=== PATIENT | female | born 1940 | race Caucasian/White ===

== ENCOUNTER → 2017-10-09 | Outpatient (CLI) | payer MEDICARE ==
[~2017-10-09] MED LIST: ARMOUR THYROID60 MG PO; CLOTRIMAZOLE-BE15 GM TOP; GABAPENTIN100 MG PO; LEVAQUIN D IV; Z.0.ALPRAZOLAM0.5 MG PO; Z.0.BACLOFEN20 MG PO; Z.0.DICYCLOMINE HCL2 PO; Z.0.DIOVAN40 MG PO; Z.0.GABAPENTIN300 MG PO; Z.1.HYDROCHLOROTH12. PO; [UNRECOGNIZED DRUG - OTHER] PO
[2017-10-09 11:24] LABS: CREATININE, SERUM 1.27 mg/dL (0.57-1.11)
--- NOTE | 2017-10-09 12:22 | Diagnostic Imaging Report ---
PROCEDURE:CHEST XRAY LINE PLACEMENT TECHNIQUE:Portable AP chest INDICATION:PICC placement COMPARISON:[facility], DX, CHEST XRAY LINE PLACEMENT, 07/24/2015, 20:17. FINDINGS: See conclusion. CONCLUSION: 1. Right PICC terminating in the low SVC. 2. Clear lungs. No pleural effusions. 3. Normal cardiomediastinal silhouette. 4. Intact skeleton. Dictated by: Se Sandoval M.D. on 10/09/2017 at 12:22 Electronically approved by: Se Sandoval M.D. on 10/09/2017 at 12:22
== END ==
LOC: DX 10:29
PROVIDERS: ATTEND Internal Medicine
DX: N39.0 Urinary tract infection, site not specified (principal); Z16.24 Resistance to multiple antibiotics
CPT/HCPCS: 36415; 36569; 71045; 82565; 84520

== ENCOUNTER → 2018-09-30 | Outpatient (CLI) | payer MEDICARE ==
[2018-09-30 11:06] LABS: INR 0.87; PARTIAL THROMBOPLASTIN TIME 30.7 seconds (23.8-35.5); PROTHROMBIN TIME 12.6 seconds (11.9-14.5)
[2018-09-30 11:12] LABS: CREATININE, SERUM 1.31 mg/dL (0.57-1.11)
--- NOTE | 2018-09-30 13:33 | Diagnostic Imaging Report ---
EXAM: CHEST XRAY LINE PLACEMENT dated 09/30/2018 at 12:41 PM INDICATION: PICC placement COMPARISON: None. FINDINGS: Single portable AP view of the chest. Visualized bones, soft tissues and cardiomediastinal silhouette appear unremarkable. IMPRESSION: 1. Lines/tubes: Left-sided PICC terminates overlying the SVC. 2. No acute cardiopulmonary abnormality. Signed by: Dr. Jl Raphael DO on 09/30/2018 1:30 PM
== END ==
LOC: DX 10:31
PROVIDERS: ATTEND Internal Medicine
DX: N39.0 Urinary tract infection, site not specified (principal); A41.81 Sepsis due to Enterococcus
CPT/HCPCS: 36415; 36569; 71045; 82565; 84520; 85049; 85610; 85730

== ENCOUNTER 2018-10-07 10:32 | Emergency (ER) | payer MEDICARE ==
[~2018-10-07] VITALS: Ht 162.6 cm; Wt 102.5 kg
--- OUTSIDE RECORDS SUMMARY | 2018-10-07 10:36 | XMS REPORT ---
Author Author [facility] Address Unknown Phone Unavailable Care Team Providers Care Menagerie Caretaker Name Role Phone CLARISSA BARRON Unavailable Unavailable Problems This patient has no known problems. Allergies, Adverse Reactions, Alerts This patient has no known allergies or adverse reactions. Medications This patient has no known medications. Results Test Description Test Time Test Comments Text Results Atomic Results Result Comments CHEST XRAY LINE PLACEMENT 2018-09-30 13:29:00 [place] [address] Patient Name: XIN MURRAY MR #: [id number] : 1940 Age/Sex: 78/F Req #: [id number] [facility] Physician: Ordered by: CLARISSA BARRON MD Report #: [id number] Location: DX Room/Bed: Procedure: [id number] DX/CHEST XRAY LINE PLACEMENT Exam Date: 09/30/18 Exam Time: 1200 REPORT STATUS: Signed EXAM: CHEST XRAY LINE PLACEMENT dated 09/30/2018 at 12:41 PM INDICATION: PICC placement COMPARISON: None. FINDINGS: Single portable AP view of the chest. Visualized bones, soft tissues and cardiomediastinal silhouette appear unremarkable. IMPRESSION: 1. Lines/tubes: Left-sided PICC terminates overlying the SVC. 2. No acute cardiopulmonary abnormality. Signed by: Dr. Nicolette Raphael DO on 09/30/2018 1:30 PM Dictated By: NICOLETTE RAPHAEL DO 29 Transcribed By: VANESSA on 09/30/181329 COPY TO: CLARISSA BARRON MD CHEST XRAY LINE PLACEMENT [facility] [address] [address] Patient Name: XIN MURRAY MR #: [id number] : 1940 Age/Sex: 77/F Req #: [id number] Adm Physician: Ordered by: CLARISSA BARRON MD Report #: [id number] Location: DX Room/Bed: Procedure: [id number] DX/CHEST XRAY LINE PLACEMENT Exam Date: 10/09/17 Exam Time: 1115 REPORT STATUS: Signed PROCEDURE: CHEST XRAY LINE PLACEMENT TECHNIQUE: Portable AP chest INDICATION: PICC placement COMPARISON: [facility], DX, CHEST XRAY LINE PLACEMENT, 07/24/2015, 20:17. FINDINGS: See conclusion. CONCLUSION: 1. Right PICC terminating in the low SVC. 2. Clear lungs. No pleural effusions. 3. Normal cardiomediastinal silhouette. 4. Intact skeleton. Dictated by: Jasmeet Sandoval M.D. on 10/09/2017 at 12:22 Electronically approved by: Jasmeet Sandoval M.D. on 10/09/2017 at 12:22 Dictated By: JASMEET SANDOVAL MD 1222 Transcribed By: ISRAEL on 10/09/17 1222 COPY TO: CLARISSA BARRON MD
--- NOTE | 2018-10-07 16:37 | NUR ---
Pt placed in a hallway stretcher for comfort. Pt updated on PICC Line Team ETA.
[2018-10-07] MEDS ORDERED: ALTEPLASE RECOMBINANT 2 MG/2 ML VIAL IV PRN (18:45)
--- NOTE | 2018-10-07 19:14 | NUR ---
PICC LINE TEAM ABLE TO CLEAR LINE WITH CATHFLO. PT VISIT CANCELLED.
== END 2018-10-07 19:17 | disposition home or self-care (01) ==
LOC: ER 10:32
DX: Z48.03 Encounter for change or removal of drains (principal)
CPT/HCPCS: 36593; 74470; J2997

== ENCOUNTER 2018-10-31 13:20 | Emergency (ER) | payer MEDICARE, OTHER ==
[~2018-10-31] VITALS: Ht 162.6 cm; Wt 131.5 kg
[2018-10-31 14:09] VITALS: BP 158/78
--- NOTE | 2018-10-31 15:23 | Diagnostic Imaging Report ---
Hip complete Indication: Unable to stand Technique: AP and frogleg views of right hip obtained. Comparison: None Findings: The bones are diffusely demineralized. Right hip remains properly located. The cortex appears intact throughout. Trochanters appear intact. No significant joint space narrowing or osteophytic lipping. Adjacent pubic rami appear intact. Lower lumbar spine demonstrates diffuse degenerative changes. There are chain sutures in the left abdomen. No radiopaque foreign bodies in the soft tissues. IMPRESSION: Right hip properly located. No convincing evidence for fracture. Signed by: Dr. Jaclyn Escamilla MD on 10/31/2018 3:20 PM
--- NOTE | 2018-10-31 15:25 | Diagnostic Imaging Report ---
Lumbar spine two views CPT code: 75845 Indication: Unable to stand Technique: A.P. and lateral views of the lumbar spine obtained without comparison. Findings: The bones are diffusely demineralized. There are five non rib bearing vertebral bodies. There is mild levoscoliosis with the apex at L3. No rotational component. No listhesis on lateral image. The transverse processes are intact. The vertebral body heights are well maintained. There is disc space narrowing from L3-4 to L5-S1 with endplate ossific lipping. No abnormalities of the sacroiliac joints. The sacrum is normal. There is mild facet arthropathy of the lower levels. Diffuse calcifications of the abdominal aorta. The bowel gas pattern is unremarkable with chain sutures in the left hemiabdomen. IMPRESSION: Degenerative changes of the spine and mild levoscoliosis, possibly positional. No acute osseous finding. Signed by: Dr. Jaclyn Escamilla MD on 10/31/2018 3:22 PM
[2018-10-31] MEDS ORDERED: KETOROLAC TROMETHAMINE 30 MG/ML VIAL IM ONE (15:45)
[2018-10-31] MEDS ORDERED: PREDNISONE20 MG PO (16:06)
[2018-10-31] MEDS ORDERED: ULTRAM50 MG PO (16:08)
== END 2018-10-31 16:26 | disposition home or self-care (01) ==
LOC: FSED 13:20
DX: M54.41 Lumbago with sciatica, right side (principal); M54.16 Radiculopathy, lumbar region; I10 Essential (primary) hypertension; E01.8 Other iodine-deficiency related thyroid disorders and allied conditions; G37.3 Acute transverse myelitis in demyelinating disease of central nervous system; G82.20 Paraplegia, unspecified; Z93.3 Colostomy status
CPT/HCPCS: 72100; 73502; 99283; J1885

== ENCOUNTER → 2019-09-15 | Outpatient (CLI) | payer MEDICARE ==
[~2019-09-15] MED LIST changes: +PREDNISONE20 MG PO; +ULTRAM50 MG PO
[2019-09-15 12:53] LABS: HEMOGLOBIN 14.6 g/dL (12.0-16.0)
[2019-09-15 13:07] LABS: INR 0.95; PROTHROMBIN TIME 12.9 seconds (11.9-14.5)
[2019-09-15 13:08] LABS: PARTIAL THROMBOPLASTIN TIME 33.3 seconds (23.8-35.5)
[2019-09-15 13:13] LABS: CREATININE, SERUM 1.47 mg/dL (0.57-1.11)
== END ==
LOC: DX 12:19
PROVIDERS: ATTEND Internal Medicine
DX: N39.0 Urinary tract infection, site not specified (principal)
CPT/HCPCS: 36415; 36568; 82565; 84520; 85014; 85049; 85610; 85730

== ENCOUNTER → 2019-09-17 | Outpatient (CLI) | payer MEDICARE ==
[~2019-09-17] MED LIST changes: +IOPAMIDOL 300MG/ML 100 ML INFUS..BTL IV ONE; +LIDOCAINE HCL 1% LOCAL INJ 20 ML VIAL ONE; +SODIUM CHLORIDE 0.9% 250ML 250 ML ONE
--- NOTE | 2019-09-17 16:34 | Diagnostic Imaging Report ---
Tunneled central line placement, 09/17/2019. History: UTI, need for home IV antibiotics. Comparison: None available. [employer] Representative: Dr. Hawley. Medication: 5 cc of 1% lidocaine without epinephrine. Conscious sedation: None. EBL: < 2 cc. Fluoroscopy time: 0.5 minutes. Fluoroscopy dose: 1.6 mGy (JOHN) Specimen: None. Discussion: The existing left arm midline was evaluated, demonstrating absence of aspiration and inability to flush without saline leaking around the entry site. Contrast was injected demonstrating complete occlusion of the left arm vein, with no contrast seen entering the axillary region. Decision was made to remove the nonfunctioning midline. An order and consent were obtained for placement of a tunneled central line. After informed consent and timeout procedure, the access site was prepped and draped with the standard maximal sterile barrier technique. Ultrasound images demonstrated vessel patency. Images were documented within PACS. The skin was anesthetized with lidocaine. The right internal jugular vein was accessed using a micropuncture set with ultrasound guidance. A 0.035-in. wire was advanced through the micropuncture sheath into the vein. The wire was advanced through the atrium into the IVC using fluoroscopic guidance. The right chest was further anesthetized with lidocaine to form the subcutaneous tunnel. The catheter was advanced through the tunnel. The tract was dilated. A peel-away sheath was placed. A 6 Croatian dual-lumen Powerline catheter was trimmed to the appropriate length and placed into the vessel via the peel-away sheath, which was then removed. Both ports demonstrated normal aspiration and flushing. The catheter was secured with suture. Dressing was applied. The patient tolerated the procedure well without evidence of complication. Postprocedure image demonstrates the line to terminate near the cavoatrial junction. IMPRESSION: Successful tunneled central line placement with ultrasound and fluoroscopic guidance guidance. Signed by: Jori Hawley on 09/17/2019 4:31 PM
== END ==
LOC: DX 12:35
PROVIDERS: ATTEND Internal Medicine
DX: N39.0 Urinary tract infection, site not specified (principal)
CPT/HCPCS: 36558; 36598; 76937; 77001; J2001; J7050; Q9967

== ENCOUNTER → 2019-10-21 | Outpatient (CLI) | payer MEDICARE ==
[~2019-10-21] MED LIST changes: -IOPAMIDOL 300MG/ML 100 ML INFUS..BTL IV ONE; -LIDOCAINE HCL 1% LOCAL INJ 20 ML VIAL ONE; -SODIUM CHLORIDE 0.9% 250ML 250 ML ONE
--- NOTE | 2019-10-21 15:22 | Diagnostic Imaging Report ---
PROCEDURE: Tunneled central venous catheter removal Procedural Personnel Attending physician(s): Savanah Quinonez MD Fellow physician(s): None Resident physician(s): None Advanced practice provider(s): None Pre-procedure diagnosis: Bacteremia Post-procedure diagnosis: Same Indication: Catheter no longer needed Additional clinical history: None Complications: No immediate complications. IMPRESSION: Removal of right-sided tunneled central venous catheter. Plan: Please re-consult interventional radiology if new catheter placement is desired. PROCEDURE SUMMARY: - Tunneled central venous catheter removal - Additional procedure(s): None PROCEDURE DETAILS: Pre-procedure Consent: Informed consent for the procedure including risks, benefits and alternatives was obtained and time-out was performed prior to the procedure. Preparation: The site was prepared and draped using maximal sterile barrier technique including cutaneous antisepsis. Anesthesia/sedation Level of anesthesia/sedation: No sedation Anesthesia/sedation administered by: Not applicable Total intra-service sedation time (minutes): N/A Catheter removal Local anesthesia was administered. The catheter was removed with traction. Closure Hemostasis was achieved with manual compression. Sterile dressing(s) applied. Contrast Contrast agent: None Radiation Dose None Additional Details Additional description of procedure: None Equipment details: None Specimens removed: Tunneled central venous catheter. Estimated blood loss (mL): Less than 10 Standardized report: [email or web address] Attestation Signer name: Savanah Quinonez MD I attest that I was present for the entire procedure. I reviewed the stored images and agree with the report as written. Signed by: Savanah Quinonez MD on 10/21/2019 3:19 PM
== END ==
LOC: DX 13:45
PROVIDERS: ATTEND Internal Medicine
DX: Z45.2 Encounter for adjustment and management of vascular access device (principal)
CPT/HCPCS: 36589

== ENCOUNTER 2019-11-05 17:01 | Inpatient (IN) | payer MEDICARE ==
[~2019-11-05] VITALS: Ht 162.6 cm; Wt 91.2 kg
--- NOTE | 2019-11-05 16:50 | NUR ---
Patient arrives by wheelchair from home. AAOx4. Clear pale urine in 16 F Lloyd. 2 person assist into bed. Oriented to call light. Bed in locked and low position with SR up x2.
[2019-11-05] MEDS ORDERED: ACETAMINOPHEN 325 MG TAB PO PRN (17:15)
[2019-11-05] MEDS ORDERED: LOSARTAN POTASS25 MG PO (17:45)
[2019-11-05] MEDS ORDERED: NAPROXEN250 MG PO (17:47)
[2019-11-05] MEDS ORDERED: MEROPENEM 500MG/ NS 50ML 50 ML IV SCH (18:00)
[2019-11-05 18:36] VITALS: BP 135/61
[2019-11-05 18:43] LABS: CLARITY,URINE CLEAR (CLEAR); COLOR,URINE YELLOW (YELLOW); KETONES,URINE NEGATIVE (NEGATIVE); LEUKOCYTE ESTERASE ,URINE TRACE (NEGATIVE); NITRITE,URINE NEGATIVE (NEGATIVE); PROTEIN,URINE DIPSTICK NEGATIVE (NEGATIVE)
[2019-11-05 18:44] LABS: BILIRUBIN,URINE NEGATIVE (NEGATIVE); URINE UROBILINOGEN 0.2 mg/dL (0.2 - 1)
[2019-11-05 18:45] LABS: BACTERIA,URINE RARE /HPF; EPITHELIAL CELLS,URINE FEW /LPF; WBC,URINE (MAN) 0-5 /HPF (0-5)
[2019-11-05] MEDS ORDERED: nystatin cream TOP (18:46)
[2019-11-05 18:52] VITALS: BP 135/61
--- NOTE | 2019-11-05 19:05 | NUR ---
Report given to oncoming nurse. AAOx4. Refused alternating pressure mattress after education on importance of alternating pressure mattress. Resting in bed. Bed locked and in low position, SR up x2. Call light within reach.
[2019-11-05 19:51] LABS: BASOPHILS # (AUTO) 0.1 (0.0-0.1); BASOPHILS % 0.5 % (0.0-1.0); EOSINOPHILS # (AUTO) 0.2 (0.0-0.4); EOSINOPHILS % 1.3 % (0.0-6.0); HEMATOCRIT 36.9 % (34.2-44.1); HEMOGLOBIN 11.9 g/dL (12.0-16.0); LYMPHOCYTES % 7.7 % (18.0-39.1); MEAN CORPUSCULAR HEMOGLOBIN 30.2 pg (28-32); MEAN CORPUSCULAR HGB CONC 32.2 g/dL (31-35); MEAN CORPUSCULAR VOLUME 93.7 fL (81-99); MONOCYTES # (AUTO) 0.9 (0.2-0.8); MONOCYTES % 6.9 % (4.4-11.3); NEUTROPHILS # (AUTO) 10.2 (2.1-6.9); PLATELET COUNT 276 x10e3/uL (140-360); RED BLOOD COUNT 3.94 x10e6/uL (3.6-5.1); RED CELL DISTRIBUTION WIDTH 13.9 % (11.7-14.4)
[2019-11-05 20:00] VITALS: BP 133/78
[2019-11-05] MEDS: MEROPENEM 500MG/ NS 50ML 50 ML IV SCH (20:00)
[2019-11-05 20:01] LABS: INR 0.96; PROTHROMBIN TIME 13.3 seconds (11.9-14.5)
[2019-11-05 20:02] LABS: PARTIAL THROMBOPLASTIN TIME 33.4 seconds (23.8-35.5)
[2019-11-05 20:15] LABS: ANION GAP 9.8 mmol/L (8-16); CALCIUM 9.9 mg/dL (8.4-10.2); CREATININE, SERUM 1.63 mg/dL (0.57-1.11); POTASSIUM 3.8 mmol/L (3.5-5.1)
[2019-11-05] MEDS ORDERED: GABAPENTIN 100 MG CAP PO SCH (21:00)
[2019-11-05] MEDS ORDERED: BACLOFEN 20 MG PO SCH (21:00)
[2019-11-05] MEDS: BACLOFEN 10 MG TAB PO SCH (22:05)
[2019-11-06] VITALS (9 sets, daily range): BP systolic 106–144; BP diastolic 53–77
[2019-11-06] MEDS: MEROPENEM 500MG/ NS 50ML 50 ML IV SCH ×3 (05:14→21:59)
[2019-11-06] MEDS: THYROID 60 MG TAB PO SCH (05:14)
--- NOTE | 2019-11-06 07:36 | NUR ---
BSSR GIVEN TO LANE RN, PATIENT AWAKE ALERT, PARTICIPATED IN REPORT, BOLIVAR PATENT, CONTINUE ON IV ABT THERAPY FOR UTI, PAIN LEVEL TOLERABLE AT THIS TIME, STEVEN SHERMAN INFORMED THAT PATIENT TOOK NAPROXEN PO PAIN FROM HER HOME MEDICATION, INFORMED ME OF THE DOSE AFTER TAKING MEDICATION FROM HER BAG,RADIOLOGY CALLED AT END OF SHIFT THIS RN INFORMED THAT PATIENT CENTRAL LINE PLACEMENT IS SCHEDULED FOR Friday, CONSENT IN CHART, STEVEN SHERMAN MADE AWARE
--- NOTE | 2019-11-06 07:43 | NUR ---
PT CONTINUES TO Refused alternating pressure mattress after education on importance of alternating pressure mattress. Resting in bed. Bed locked and in low position, SR up x1, REFUSING TO PLACE RIGHT UPPER SIDE RAIL UP. Call light AND PERSONAL BELONGINGS within reach.
[2019-11-06] MEDS ORDERED: NYSTATIN TOP SCH (09:00)
[2019-11-06] MEDS ORDERED: NAPROXEN 250 MG TAB PO SCH (09:00)
--- NOTE | 2019-11-06 10:17 | Diagnostic Imaging Report ---
EXAMINATION: CHEST SINGLE (PORTABLE) INDICATION: ^hypertensive heart disease ^[id number] ^0930 ^Y COMPARISON: Chest radiograph 10/21/2019 FINDINGS: AP view TUBES and LINES: None. LUNGS: Lungs are well inflated. Lungs are clear. There is no evidence of pneumonia or pulmonary edema. PLEURA: No pleural effusion or pneumothorax. HEART AND MEDIASTINUM: The cardiomediastinal silhouette is unremarkable.. BONES AND SOFT TISSUES: No acute osseous lesion. Soft tissues are unremarkable. UPPER ABDOMEN: No free air under the diaphragm. IMPRESSION: No acute thoracic abnormality. Signed by: Dr. Chasity Sandoval M.D. on 11/06/2019 10:13 AM
--- NOTE | 2019-11-06 10:37 | Diagnostic Imaging Report ---
RIGHT HIP X-RAY - 3 VIEWS HISTORY: ^Right hip pain ^Y COMPARISON: None available. FINDINGS: Bones: No acute displaced fracture. Osseous alignment is within normal limits. Joints: Moderate degenerative changes of the sacroiliac joints and bilateral hips. Soft tissues: The soft tissues appear unremarkable. IMPRESSION: Moderate degenerative changes of posterior sacroiliac joints and bilateral hips. No acute abnormalities. Signed by: Dr. Chasity Sandoval M.D. on 11/06/2019 10:33 AM
[2019-11-06] MEDS: GABAPENTIN 100 MG CAP PO SCH ×3 (10:41→21:00)
[2019-11-06] MEDS: LOSARTAN POTASSIUM 25 MG TAB PO SCH (10:41)
--- NOTE | 2019-11-06 10:41 | History and Physical ---
CHIEF COMPLAINT: Right hip pain. HISTORY OF PRESENT ILLNESS: This is a 79-year-old white woman, who presents to [facility] with a 1-week history of UTI type symptoms, namely suprapubic discomfort and burning in her urethral area. The patient has a chronic indwelling Lloyd catheter because of chronic urinary retention. The patient states the urinary catheter was just exchanged last week. On October 12, 2019, the patient had an outpatient urine culture done that revealed the presence of Citrobacter freundii bacterial species, 50,000 to 100,000 colony-forming units per mL urine. This strain of Citrobacter bacterial species was found to be resistant to all antibiotics except amikacin, gentamicin, and sulfamethoxazole/trimethoprim. The patient was prescribed Bactrim Double Strength twice a day on Saturday November 02, 2019, at her primary care physician's office namely myself, Dr. Luis Tsai to treat the Citrobacter urinary tract infection. The patient states she only tolerated two doses of the oral Bactrim because it caused experience intense cramping in her abdomen as well as cramping pain in her legs and arms. The patient states that three days prior to admission she began experiencing intense right hip pain as well as weakness in her bilateral lower extremities. The patient has underlying history of chronic partial paraplegia, secondary to transverse thoracic myelitis in 1992. However, up until 3 days prior to admission the patient stated she could transfer independently from her bed to wheelchair by pivoting on either foot. The patient states that now she cannot do any transfers due to weakness in both legs and pain in her right hip. The patient denies any fever, but states at times she does have chills. On admission, the patient white blood cell count 12,300 with 83% segmenters. Hemoglobin 11.9 g/dL. The patient's BUN and creatinine are 17 and 1.63 respectively. Potassium 3.8. Urinalysis done on this admission revealed clear yellow urine with trace leukocyte esterase, 6 to 10 red blood cells per high-power field, 0 to 5 white blood cells per high-power field, and rare bacteria. PH is 7. However, at her primary care physician's office, her urinalysis performed on November 02, 2019, revealed cloudy yellow urine with trace occult blood, positive nitrites, 3+ leukocyte esterase, greater than 60 white blood cells per high-power field and moderate bacteria. The urine culture from that urinalysis on November 02, 2019, is still pending. The patient was admitted for further evaluation and treatment. REVIEW OF SYSTEMS: GENERAL: The patient states her weight is increase in the last year, but she cannot quantify. Denies any fever. States she has had chills past few days. HEENT: No headaches. No vision changes. CARDIOVASCULAR/RESPIRATORY: No chest pain. No short of breath or cough. GI: The patient complains of dyspepsia and abdominal cramping when taking oral Bactrim. She has a diverting colostomy bag in place. She feels her stools might be more loose in usual. She states her stools are not more malodorous than usual. Denies any melena or hematochezia. Denies any nausea or vomiting. NEUROMUSCULAR: The patient states that in the past few days she can no longer transfer independently from her bed to wheelchair because of weakness in her legs, intense pain in her right hip area. ALLERGIES: 1. PENICILLIN. 2. TETANUS VACCINE TOXOID. 3. CEPHALEXIN. 4. CODEINE. 5. LEVOFLOXACIN. 6. MORPHINE. PAST MEDICAL HISTORY: 1. Recurrent urinary tract infection. 2. 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 3. Partial paraplegia, secondary to transverse thoracic myelitis in 1992. 4. Stage 3 chronic kidney disease. 5. Hypertensive heart disease. 6. Obesity, BMI 35. 7. Irritable bowel syndrome. 8. Hypothyroidism. 9. Diverticular disease. PAST SURGICAL HISTORY: 1. Diverting colostomy placement. 2. Expiratory laparotomy with colonic resection. 3. Total abdominal hysterectomy. 4. Bilateral tubal ligation. 5. Rectocele repair. 6. Left femur open reduction and internal fixation. FAMILY HISTORY: Mother had multiple sclerosis. SOCIAL HISTORY: This woman is a , lives with her adult daughter. The patient was a heavy tobacco smoker. She quit in 1983. The patient has no history of alcohol or illicit drug use. CURRENT MEDICATIONS: 1. Alprazolam 0.5 mg once daily as needed for anxiety. 2. Baclofen 20 mg daily. 3. Dicyclomine 20 mg daily. 4. Gabapentin 300 mg daily. 5. Losartan 25 mg daily. 6. Naproxen 250 mg daily as needed for pain. 7. Elmer Thyroid 60 mg daily. 8. Nystatin cream applied topical to affected area twice a day. PHYSICAL EXAMINATION: GENERAL: She is awake, alert, and fluent. She is pleasant on exam. VITAL SIGNS: Blood pressure is 144/76, pulse 60, respiratory rate 18, oxygen saturation 95%, and temperature 97.3. Height is 5 feet 4 inches, weight is 201 pounds, BMI 34. INTEGUMENT: Skin is warm and dry. No pallor, jaundice, or diaphoresis. HEENT: Anicteric sclerae. Moist mucous membranes. NECK: Supple. CARDIOVASCULAR: Distant heart sounds. Regular rate and rhythm. LUNGS: No rales. No rhonchi. ABDOMEN: Obese yet benign. The patient has a left lower quadrant diverting colostomy with a liquid stool. No obvious malodorous stool is appreciated. EXTREMITIES: No edema or deformity. NEUROLOGIC: She is an incomplete paraplegic as previously stated. EXTREMITIES: She does have tenderness when palpating the right hip area. DIAGNOSES: 1. Sepsis, secondary urinary tract infection. 2. Recurrent urinary tract infections. 3. Chronic indwelling Lloyd catheter secondary to neurogenic bladder. 4. Neurogenic bladder, secondary to transverse thoracic myelitis in 1992. 5. Hypertensive heart disease. 6. Quxqh-sm-glvvlad renal insufficiency. 7. Right hip pain, likely degenerative joint disease. 8. Obesity, BMI 35. PLAN: 1. Gentle intravenous fluids. 2. Follow renal function. 3. Follow urine culture. 4. Start intravenous antibiotics. 5. We will order physical therapy to help the patient with transfers. 6. We will order two-view x-ray of the right hip. 7. May even consider a CT of the lumbar spine and hip. I spent an hour in the care of this patient. MD BRENTON Schilling/ALEJO /[id number] CARA
[2019-11-06] MEDS: BACLOFEN 10 MG TAB PO SCH ×3 (10:42→21:59)
[2019-11-06] MEDS: NYSTATIN 100,000 UNITS/GM CRM 30GM TUBE TOP SCH ×2 (10:42→17:51)
[2019-11-06] MEDS: SODIUM CHLORIDE 0.9% 1000ML 1,000 ML IV SCH ×2 (15:49→21:59)
[2019-11-06] MEDS: DICYCLOMINE HCL 20 MG TAB PO PRN (19:50)
[2019-11-06] MEDS: MICONAZOLE NITRATE 45 GM CR VG SCH (21:00)
[2019-11-06] MEDS: ALPRAZOLAM 0.5 MG TAB PO PRN (22:00)
[2019-11-07] VITALS (10 sets, daily range): BP systolic 113–163; BP diastolic 56–92
[2019-11-07] MEDS: MEROPENEM 500MG/ NS 50ML 50 ML IV SCH ×3 (05:51→20:11)
[2019-11-07] MEDS: THYROID 60 MG TAB PO SCH (05:51)
[2019-11-07] MEDS: SODIUM CHLORIDE 0.9% 1000ML 1,000 ML IV SCH (05:51)
[2019-11-07 06:01] LABS: BASOPHILS # (AUTO) 0.1 (0.0-0.1); BASOPHILS % 0.8 % (0.0-1.0); EOSINOPHILS # (AUTO) 0.4 (0.0-0.4); EOSINOPHILS % 3.6 % (0.0-6.0); HEMATOCRIT 37.1 % (34.2-44.1); LYMPHOCYTES # (AUTO) 1.1 (1.0-3.2); LYMPHOCYTES % 9.7 % (18.0-39.1); MEAN CORPUSCULAR HEMOGLOBIN 30.4 pg (28-32); MEAN CORPUSCULAR HGB CONC 32.3 g/dL (31-35); MEAN CORPUSCULAR VOLUME 93.9 fL (81-99); MONOCYTES # (AUTO) 0.8 (0.2-0.8); MONOCYTES % 7.1 % (4.4-11.3); NEUTROPHILS # (AUTO) 8.9 (2.1-6.9); NEUTROPHILS % 78.4 % (38.7-80.0); PLATELET COUNT 280 x10e3/uL (140-360); RED BLOOD COUNT 3.95 x10e6/uL (3.6-5.1); RED CELL DISTRIBUTION WIDTH 14.4 % (11.7-14.4)
[2019-11-07 06:27] LABS: CALCIUM 9.9 mg/dL (8.4-10.2); CREATININE, SERUM 1.55 mg/dL (0.57-1.11)
--- NOTE | 2019-11-07 07:26 | NUR ---
bedside shift report received from PM nurse. pt in stable condition. will continue to monitor.
[2019-11-07] MEDS: FLUCONAZOLE 100 MG TAB PO SCH (09:09)
[2019-11-07] MEDS: LOSARTAN POTASSIUM 25 MG TAB PO SCH (09:09)
[2019-11-07] MEDS: BACLOFEN 10 MG TAB PO SCH ×3 (09:10→23:13)
[2019-11-07] MEDS: GABAPENTIN 100 MG CAP PO SCH ×4 (09:11→23:13)
[2019-11-07] MEDS: NYSTATIN 100,000 UNITS/GM CRM 30GM TUBE TOP SCH ×2 (09:11→17:50)
[2019-11-07] MEDS ORDERED: DIATRIZOATE MEGL/DIATRIZOA SOD 30 ML BTL PO ONE (09:34)
--- NOTE | 2019-11-07 09:34 | Progress Note ---
DATE: 11/07/2019 CHIEF COMPLAINT/HISTORY OF PRESENT ILLNESS: This is a 79-year-old white woman, whose primary treating diagnosis is sepsis secondary to Citrobacter freundii and Klebsiella pneumoniae urinary tract infection. Moreover, she was admitted with diagnosis of krmzr-ow-ahwszmo renal insufficiency. The patient states that the cramping in her suprapubic area is improving, but she has more cramping in her abdominal left lower quadrant area. The patient also complains of pain in her right hip. The patient underwent an x-ray of the hip yesterday November 06, 2019, which revealed moderate degenerative changes of the posterior sacroiliac joint and bilateral hips, but no acute abnormalities were appreciated. Also, the urine culture performed in an outpatient setting on November 02, 2019 became available and it revealed the presence of Citrobacter freundii and Klebsiella pneumoniae, both bacterial species had greater than 100,000 colony-forming units/mL urine. Both these bacterial strains were found to be sensitive to cefepime and imipenem. The patient is currently receiving meropenem, which she tolerated quite well. Today's blood work revealed white blood cell count 11,300 with 78% segmented neutrophils. Hemoglobin 12 g/dL. The patient's BUN and creatinine today is 16 and 1.55, respectively and potassium is 4.0. REVIEW OF SYSTEMS: As per HPI. PHYSICAL EXAMINATION: GENERAL: She is awake, alert, and fluent. She is pleasant and cooperative to exam. VITAL SIGNS: Blood pressure is 119/56, pulse 68, respiratory rate is 18, temperature is 97.4, and oxygen saturation 97% on room air. Height 5 feet 4 inches, weight 201 pounds with BMI 35. INTEGUMENT: Skin is warm and dry. No pallor, jaundice, or diaphoresis. HEENT: Anicteric sclerae. Moist mucous membranes. NECK: Supple. CARDIOVASCULAR: Regular rate and rhythm with an S4 gallop. LUNGS: No rales. No rhonchi or wheezes. ABDOMEN: Obese, yet benign. She has a diverting colostomy in the left lower quadrant. : The patient has a Lloyd catheter in place with clear looking urine, no sediment appreciated. EXTREMITIES: No edema or deformity. NEUROLOGIC: She is awake, alert, and fully oriented. 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 DIAGNOSES: 1. Sepsis secondary to Citrobacter freundii and Klebsiella pneumoniae urinary tract infection. 2. Recurrent urinary tract infections. 3. Right hip degenerative joint disease. 4. Gdqnv-cy-muobxke renal insufficiency, resolving. 5. Stage 3 chronic kidney disease. 6. Obesity, BMI 35. 7. Hypertensive heart disease. 8. Chronic indwelling Lloyd catheter secondary to neurogenic bladder. 9. Neurogenic bladder secondary to transverse thoracic myelitis in 1992. PLAN: 1. We will continue meropenem for the patient's Citrobacter freundii and Klebsiella pneumoniae urinary tract infection. 2. Follow renal function. 3. We will intravenous fluids. 4. We will proceed with physical therapy. 5. Pain control. 6. Order CT of the abdomen and pelvis without contrast since the patient is complaining of worsening abdominal pain, particularly in her left lower quadrant area and she states she feels quite ill. 7. Continue gabapentin for the patient's neuropathy. I spent 45 minutes in the care of the patient. MD BRENTON Schilling/ALEJO /[id number] CARA
--- NOTE | 2019-11-07 11:47 | Diagnostic Imaging Report ---
EXAM: CT Abdomen and Pelvis WITHOUT contrast INDICATION: Colitis. Pain. COMPARISON: None. TECHNIQUE: Abdomen and pelvis were scanned utilizing a multidetector helical scanner from the lung base to the pubic symphysis without administration of IV contrast. Absence of intravenous contrast decreases sensitivity for detection of focal lesions and vascular pathology. Coronal and sagittal reformations were obtained. Routine protocol was performed. IV CONTRAST: None. ORAL CONTRAST: Gastrografin and water mixture. RADIATION DOSE: Total DLP: 741.72 mGy*cm Estimated effective dose: (DLP x 0.015 x size factor) mSv COMPLICATIONS: None FINDINGS: LINES and TUBES: None. LOWER THORAX: Unremarkable HEPATOBILIARY: No focal hepatic lesions. No biliary ductal dilation. GALLBLADDER: No radio-opaque stones or sludge. No wall thickening. SPLEEN: No splenomegaly. PANCREAS: No focal masses or ductal dilatation. ADRENALS: No adrenal nodules KIDNEYS/URETERS: No hydronephrosis. No cystic or solid mass lesions. No stones. GI TRACT: Findings suggestive of status post partial colonic resection with a diverting colostomy in the left lower quadrant. No abnormal distention, wall thickening, or evidence of bowel obstruction. There are diverticula within the colon without evidence of diverticulitis. Appendix is normal. PELVIC ORGANS/BLADDER: Urinary bladder decompressed by Lloyd catheter which appears in adequate position. Status post hysterectomy. LYMPH NODES: No lymphadenopathy. VESSELS: There is moderate atherosclerotic disease in the aorta and major arterial branches. PERITONEUM / RETROPERITONEUM: No free air or fluid. BONES: Degenerative disc disease at L3-L4. SOFT TISSUES: Unremarkable. IMPRESSION: 1. Colonic diverticulosis without acute diverticulitis. 2. Diverting colostomy in the left lower quadrant. Signed by: Dr. Aquilino York M.D. on 11/07/2019 11:43 AM
[2019-11-07] MEDS: DICYCLOMINE HCL 20 MG TAB PO PRN (15:51)
--- NOTE | 2019-11-07 19:00 | NUR ---
Received the patient in report. lyeing in the bed.stable condition.
--- NOTE | 2019-11-07 21:10 | NUR ---
Assessment done.no resp.distress.abd pain voiced 12/18.foreman care given.colostomy bag emptied.bed locked and lowest position.phone and call light within reach.instructed to call for assistance as needed.
[2019-11-07] MEDS: MICONAZOLE NITRATE 45 GM CR VG SCH (21:30)
--- NOTE | 2019-11-07 23:14 | NUR ---
Patient demanded to give xanax 0.25 mg po.administered.
[2019-11-07] MEDS: ALPRAZOLAM 0.5 MG TAB PO PRN (23:57)
[2019-11-08] VITALS (7 sets, daily range): BP systolic 126–144; BP diastolic 65–71
[2019-11-08] MEDS: MEROPENEM 500MG/ NS 50ML 50 ML IV SCH ×2 (04:01→12:24)
--- NOTE | 2019-11-08 05:00 | NUR ---
Resting well. denied abd. spasm .
[2019-11-08 05:57] LABS: BASOPHILS # (AUTO) 0.1 (0.0-0.1); BASOPHILS % 0.7 % (0.0-1.0); EOSINOPHILS # (AUTO) 0.4 (0.0-0.4); EOSINOPHILS % 3.4 % (0.0-6.0); HEMATOCRIT 37.4 % (34.2-44.1); LYMPHOCYTES # (AUTO) 0.9 (1.0-3.2); LYMPHOCYTES % 8.1 % (18.0-39.1); MEAN CORPUSCULAR HEMOGLOBIN 30.1 pg (28-32); MEAN CORPUSCULAR HGB CONC 32.1 g/dL (31-35); MEAN CORPUSCULAR VOLUME 93.7 fL (81-99); MONOCYTES # (AUTO) 0.9 (0.2-0.8); MONOCYTES % 7.9 % (4.4-11.3); NEUTROPHILS # (AUTO) 8.9 (2.1-6.9); NEUTROPHILS % 79.5 % (38.7-80.0); PLATELET COUNT 252 x10e3/uL (140-360); RED BLOOD COUNT 3.99 x10e6/uL (3.6-5.1); RED CELL DISTRIBUTION WIDTH 14.5 % (11.7-14.4)
[2019-11-08] MEDS: THYROID 60 MG TAB PO SCH (06:05)
[2019-11-08 06:18] LABS: ANION GAP 8.2 mmol/L (8-16); CALCIUM 9.5 mg/dL (8.4-10.2); CREATININE, SERUM 1.39 mg/dL (0.57-1.11); POTASSIUM 4.2 mmol/L (3.5-5.1)
--- NOTE | 2019-11-08 06:55 | NUR ---
Bed side shift report given to oncoming RN.stable condition.
--- NOTE | 2019-11-08 07:00 | NUR ---
RECEIVED PATIENT AWAKE RESTING IN BED NO S/S OF DISTRESS. BED LOW, WHEELS LOCKED, SIDE RAILS X2. CALL LIGHT IN REACH WILL CONTINUE TO MONITOR PATIENT.
[2019-11-08] MEDS: BACLOFEN 10 MG TAB PO SCH ×3 (08:30→21:30)
[2019-11-08] MEDS: NYSTATIN 100,000 UNITS/GM CRM 30GM TUBE TOP SCH ×2 (08:30→17:28)
[2019-11-08] MEDS: FLUCONAZOLE 100 MG TAB PO SCH (08:30)
[2019-11-08] MEDS: LOSARTAN POTASSIUM 25 MG TAB PO SCH (08:30)
[2019-11-08] MEDS: GABAPENTIN 100 MG CAP PO SCH ×3 (08:30→21:30)
--- NOTE | 2019-11-08 09:26 | NUR ---
SPOKE WITH PT ABOUT DISCHARGE PLAN. SHE STATES SHE HAS BEEN TO [facility] AND WAS NOT HAPPY WITH THE STRINGENT THERAPY, SHE FELT LIKE IT WAS MORE THAN THE 3 HOURS. SPOKE WITH HER ABOUT THE ABX AND DEPENDING ON WHICH ONE SHE CAN TAKE AND THE EXPENSE OF ABX IT WOULD DEPEND ON PLACEMENT OPTIONS. SHE WANTS TO WAIT FOR DR PITTMAN TO DETERMINE WHAT ABX AND HOW LONG PRIOR TO SIGNING CHOICE. SHE STATES SHE HAS BEEN TO [facility] BEFORE BUT WILL ALSO CONSIDER [facility] OR [facility].
--- NOTE | 2019-11-08 10:19 | Progress Note ---
DATE: 11/08/2019 CHIEF COMPLAINT/HISTORY OF PRESENT ILLNESS: This is a 79-year-old white woman, whose primary treating diagnosis is sepsis secondary to Citrobacter freundii and Klebsiella pneumoniae urinary tract infection. Moreover, she was diagnosed with acute on chronic renal insufficiency. Renal function is actually improving. The patient states she is feeling slightly better. The patient underwent a CT of the abdomen and pelvis yesterday without contrast, which revealed evidence of diverticulosis, but no evidence of acute diverticulitis. The patient's stool is soft and mushy, but not in liquid form. The nursing staff states that when they replaced her colostomy bag today, the stool was not particularly malodorous as one would see in colostrum difficile colitis. The patient denies any fever or chills. The blood work performed today revealed a BUN and creatinine of 16 and 1.39 respectively. Potassium is 4.2. White blood cell count today is 11,100 with 79% segmenters. Hemoglobin 12 g/dL. Sedimentation rate is 25. C-reactive protein level is 11. REVIEW OF SYSTEMS: As per HPI. PHYSICAL EXAMINATION: GENERAL: She is awake, alert and fully oriented. She is very pleasant and cooperative. She does not appear to be in any obvious distress. VITAL SIGNS: Blood pressure 126/72, pulse 78, respiratory rate 18, temperature 97.0, and oxygen saturation 94% on room air. Height 5 feet 4 inches, weight 201 pounds, and BMI 34. INTEGUMENT: Skin is warm and dry. No pallor, jaundice, or diaphoresis. HEENT: Anterior sclerae with moist mucous membranes. NECK: Supple. CARDIOVASCULAR: Distant heart sounds. Regular rate and rhythm with an S4, gallop. LUNGS: No rales. No rhonchi. No wheezes. ABDOMEN: Obese. Benign. The patient has a diverting colostomy in left lower quadrant that has soft stool. GENITOURINARY: The patient has a Lloyd catheter in place with clear urine. No obvious sediment appreciated. EXTREMITIES: No edema or deformity. NEUROLOGIC: She is awake, alert, and fully oriented. 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 DIAGNOSES: 1. Sepsis secondary to Citrobacter freundii and Klebsiella pneumoniae urinary tract infection. 2. Recurrent urinary tract infections. 3. Right hip degenerative joint disease. 4. Acute on chronic renal insufficiency, resolving. 5. Stage 3 chronic kidney disease. 6. Obesity, BMI 35. 7. Hypertensive heart disease. 8. Chronic indwelling Lloyd catheter secondary to neurogenic bladder. 9. Neurogenic bladder secondary to transverse thoracic myelitis in 1992. PLAN: 1. Continue intravenous meropenem for the patient's Citrobacter freundii and Klebsiella pneumoniae urinary tract infection. 2. Consult Infectious Disease specialist. 3. Follow renal function. 4. We will stop intravenous fluids. 5. Proceed with physical therapy. 6. Pain control. 7. We will ask therapy to work on ufq-en-pheuehoiss transfers for this patient. 8. Continue gabapentin for the patient's neuropathy. 9. We will avoid NSAIDs because of the patient's recent acute on chronic renal insufficiency. I spent 35 minutes in the care of this patient. MD BRENTON Schilling/ALEJO /[id number] MTDChong
--- NOTE | 2019-11-08 11:15 | NUR ---
PT SIGNED CHOICE FOR [facility], FILED IM CHART. COMPLETED PASRR AND RTF, WILL FAX CLINICALS SOON PACKET IS COMPLETE.
--- NOTE | 2019-11-08 12:04 | NUR ---
DR. VARGHESE ROUNDING ON PATIENT. NO NEED FOR CENTRAL LINE. CENTRAL LINE ORDER CANCELLED.
--- NOTE | 2019-11-08 12:31 | NUR ---
DR. VARGHESE ROUNDING ON PATIENT ORDER TO DISCONTINUE MERREM AND DIFLUCAN. NEW ORDERS IMPLEMENTED.
--- NOTE | 2019-11-08 16:31 | NUR ---
PT TO LEAVE AT 830 IN AM OST TO SEE PT. RESIDENTIAL FACILITY DISCHARGE INFORMATION PATIENT HAS BEEN ACCEPTED TO: NAME:JALEESA PINO ADDRESS:[id number] [facility] [place] ACCEPTING DISTILLERY MANAGER: MARYBEL BURGER ACCEPTING MD: YOVANNY ROOM: 155 NURSE CALL REPORT TO: [phone] IMM SIGNED AND OBTAINED (if applicable): IMM THE FOLLOWING DOCUMENTS MUST ACCOMPANY PATIENT FOR TRANSFER: COPIED CHART:PACKET
--- NOTE | 2019-11-08 19:00 | NUR ---
RECEIVED PATIENT IN BEDSIDE SHIFT REPORT. PATIENT RESTING IN BED. PAIN 3/10 IN ABDOMEN, PATIENT STATES IT IS MORE PRESSURE THAN PAIN, REQUESTING ENEMA. WILL PROVIDE. IV TO L FA 22G ASYMPTOMATIC, INTACT, AND PATENT. BED LOCKED IN LOWEST POSITION, SIDE RAILS UPX2, CALL LIGHT IN REACH.
[2019-11-08] MEDS ORDERED: SOD PHOSPHATE/SOD BIPHOSPHATE ENEMA 132 ML BTL PR SCH (20:00)
--- NOTE | 2019-11-08 20:45 | NUR ---
PROVIDED PATIENT WITH ENEMA, NO BM NOTED AT THIS TIME, WILL CONTINUE TO MONITOR. BOLIVAR CARE PERFORMED. ATTEMPTED TO PLUG IN ALTERNATING PRESSURE MATTRESS, BUT PATIENT REFUSED, STATING IT INCREASES HER NERVE PAIN. ATTEMPTED TO TURN PATIENT TO SIDE, BUT PATIENT STATES SHE WANTS TO STAY ON HER BACK FOR NOW. WILL CONTINUE TO ATTEMPT TO TURN TO PRESERVE SKIN. SKIN IS INTACT, NO REDNESS NOTED TO SACRUM AT THIS TIME. WILL CONTINUE TO MONITOR PATIENT CLOSELY.
[2019-11-08] MEDS: DICYCLOMINE HCL 20 MG TAB PO PRN (21:30)
[2019-11-08] MEDS: MICONAZOLE NITRATE 45 GM CR VG SCH (21:30)
[2019-11-08] MEDS: ALPRAZOLAM 0.5 MG TAB PO PRN (23:05)
--- NOTE | 2019-11-09 | NUR ---
ATTEMPTED AGAIN TO TURN PATIENT, PATIENT REFUSED D/T NERVE PAIN. WILL CONTINUE TO ATTEMPT AND MONITOR.
[2019-11-09 00:33] VITALS: BP 139/68
[2019-11-09 04:10] VITALS: BP 129/63
[2019-11-09 05:21] LABS: BASOPHILS # (AUTO) 0.1 (0.0-0.1); BASOPHILS % 0.5 % (0.0-1.0); EOSINOPHILS # (AUTO) 0.5 (0.0-0.4); EOSINOPHILS % 4.4 % (0.0-6.0); HEMATOCRIT 37.3 % (34.2-44.1); LYMPHOCYTES % 8.2 % (18.0-39.1); MEAN CORPUSCULAR HEMOGLOBIN 30.3 pg (28-32); MEAN CORPUSCULAR HGB CONC 32.2 g/dL (31-35); MEAN CORPUSCULAR VOLUME 94.2 fL (81-99); MONOCYTES # (AUTO) 0.9 (0.2-0.8); MONOCYTES % 7.4 % (4.4-11.3); NEUTROPHILS # (AUTO) 9.3 (2.1-6.9); NEUTROPHILS % 79.2 % (38.7-80.0); PLATELET COUNT 272 x10e3/uL (140-360); RED BLOOD COUNT 3.96 x10e6/uL (3.6-5.1); RED CELL DISTRIBUTION WIDTH 14.3 % (11.7-14.4)
[2019-11-09 05:40] LABS: ANION GAP 9.2 mmol/L (8-16); CALCIUM 9.8 mg/dL (8.4-10.2); CREATININE, SERUM 1.29 mg/dL (0.57-1.11); POTASSIUM 4.2 mmol/L (3.5-5.1)
[2019-11-09] MEDS: THYROID 60 MG TAB PO SCH (06:12)
--- NOTE | 2019-11-09 07:00 | NUR ---
RECEIVED PATIENT AWAKE RESTING IN BED NO S/S OF DISTRESS. BED LOW, WHEELS LOCKED, SIDE RAILS X2. CALL LIGHT IN REACH WILL CONTINUE TO MONITOR PATIENT.
--- NOTE | 2019-11-09 07:42 | NUR ---
REPORT GIVEN TO MICHELLE HARRIS AT [facility]. SUMMARY OF CARE PROVIDED.
[2019-11-09] MEDS: LOSARTAN POTASSIUM 25 MG TAB PO SCH (08:14)
[2019-11-09] MEDS: GABAPENTIN 100 MG CAP PO SCH (08:14)
[2019-11-09] MEDS: BACLOFEN 10 MG TAB PO SCH (08:14)
[2019-11-09] MEDS: NYSTATIN 100,000 UNITS/GM CRM 30GM TUBE TOP SCH (08:14)
[2019-11-09 08:30] VITALS: BP 139/70
[2019-11-09 08:31] VITALS: BP 139/70
[2019-11-09] MEDS ORDERED: HIPREX1 GM PO (09:19)
--- NOTE | 2019-11-09 09:43 | Discharge Summary ---
ADMIT DIAGNOSES: 1. Sepsis secondary to urinary tract infection. 2. Uvqht-uw-zqgszmg renal insufficiency secondary to acute tubular necrosis. 3. Hypertensive heart disease. 4. Obesity, body mass index 35. 5. 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 DISCHARGE DIAGNOSES: 1. Citrobacter freundii and Klebsiella pneumoniae urinary tract infection, resolved. 2. Acute on chronic renal insufficiency secondary to acute tubular necrosis, resolved. 3. Stage 3 chronic kidney disease. 4. Hypertensive heart disease. 5. Obesity, body mass index 35. 6. 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 7. Neurogenic bladder secondary to transverse thoracic myelitis in 1992 requiring indwelling urinary catheter. HOSPITAL COURSE: This is a 79-year-old white woman, who has a known history of recurrent urinary tract infection as well as chronic indwelling Lloyd catheter due to neurogenic bladder from transverse thoracic myelitis that she experienced in 1992. Moreover, she has incomplete paraplegia secondary to transverse thoracic myelitis that she experienced in 1992. She was admitted with a diagnosis of sepsis secondary to urinary tract infection. Urine culture performed during this hospitalization revealed Citrobacter freundii, bacterial species. However, urine culture performed as an outpatient on November 02, 2019, revealed Citrobacter freundii and Klebsiella pneumoniae bacterial species. Also both bacterial species had greater than 100,000 colony- forming units/mL urine. During this hospitalization, the patient received intravenous meropenem for her urinary tract infection, which she tolerated quite well. Also, during hospitalization, she was seen by Infectious Disease specialist, namely Dr. Olson, who felt that the growth of Citrobacter freundii and Klebsiella pneumoniae was most likely secondary to bacterial colonization, not to infection. Thus, he stopped intravenous meropenem. He recommended the patient start Hiprex 1 g by mouth twice a day indefinitely to help prevent her urinary tract infections. He also recommended the patient not exchange her Lloyd catheter out every 3 weeks, but only do so when there is obvious sediment in the Lloyd catheter or tubing. During this hospitalization, the patient also received physical therapy. Also during the hospitalization, the patient underwent an x-ray of her hips, which revealed moderate degenerative changes of the posterior leg joints and bilateral hips, but no acute abnormalities were appreciated. The patient also underwent a CT of abdomen and pelvis during this hospitalization because she was experiencing intense cramping in her left lower quadrant abdominal area. The CT of abdomen and pelvis without contrast during this hospitalization did reveal colonic diverticulosis without any evidence of acute diverticulitis. The patient's renal function improved dramatically with intravenous fluids. On admission, the patient's BUN and creatinine were 17 and 1.63 respectively. On day of discharge, BUN and creatinine were 18 and 1.29 respectively. During this hospitalization, the patient was found to have a C-reactive protein level of 11, which was slightly elevated and a sedimentation rate of 25, which is also slightly elevated. The high end normal C-reactive protein is 10 and a high end normal sedimentation rate is 20. The decision was made to transfer the patient to a local retirement facility, where she could receive daily physical therapy. CONDITION ON DISCHARGE: Stable. DISCHARGE MEDICATIONS: 1. Hiprex 1 p.o. b.i.d. indefinitely. 2. Gabapentin 200 mg t.i.d. 3. Nystatin applied to affected area twice a day. 4. Baclofen 20 mg t.i.d. 5. Losartan 25 mg daily. 6. [place] Thyroid 60 mg daily. 7. Alprazolam 0.5 mg once daily as needed for anxiety. 8. Dicyclomine 20 mg t.i.d. p.r.n. abdominal cramping. 9. Acetaminophen 650 mg every 6 hours as needed for pain or temperature 99.5 or higher. Also the patient was instructed to stop naproxen. In fact, the patient was instructed to avoid all NSAIDs because of her stage 3 chronic kidney disease as well as her recent acute on chronic renal insufficiency secondary to acute tubular necrosis. FOLLOWUP INSTRUCTIONS: As previously stated, the patient will transfer to a local retirement facility, namely [facility], where she will receive daily occupational and physical therapy. She will follow up with urology namely Dr.Ori Garcia as outpatient for her neurogenic bladder. MD BRENTON Schilling/ALEJO /[id number] cc: Lorin Olsno MD MTDD
--- NOTE | 2019-11-09 09:45 | NUR ---
REMOVED PATIENTS IV. CATHETER TIP INTACT AND PRESSURE DRESSING APPLIED.
--- NOTE | 2019-11-09 11:22 | NUR ---
[facility] julissay [id number] ALLERGIES: 1. PENICILLIN. 2. TETANUS VACCINE TOXOID. 3. CEPHALEXIN. 4. CODEINE. 5. LEVOFLOXACIN. 6. MORPHINE. PAST MEDICAL HISTORY: 1. Recurrent urinary tract infection. 2. 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 3. Partial paraplegia, secondary to transverse thoracic myelitis in 1992. 4. Stage 3 chronic kidney disease. 5. Hypertensive heart disease. 6. Obesity, BMI 35. 7. Irritable bowel syndrome. 8. Hypothyroidism. 9. Diverticular disease. PAST SURGICAL HISTORY: 1. Diverting colostomy placement. 2. Expiratory laparotomy with colonic resection. 3. Total abdominal hysterectomy. 4. Bilateral tubal ligation. 5. Rectocele repair. 6. Left femur open reduction and internal fixation. FAMILY HISTORY: Mother had multiple sclerosis. SOCIAL HISTORY: This woman is a , lives with her adult daughter. The patient was a heavy tobacco smoker. She quit in 1983. The patient has no history of alcohol or illicit drug use. CURRENT MEDICATIONS: 1. Alprazolam 0.5 mg once daily as needed for anxiety. 2. Baclofen 20 mg daily. 3. Dicyclomine 20 mg daily. 4. Gabapentin 300 mg daily. 5. Losartan 25 mg daily. 6. Naproxen 250 mg daily as needed for pain. 7. [place] Thyroid 60 mg daily. 8. Nystatin cream applied topical to affected area twice a day.
[2019-11-09 11:47] VITALS: BP 127/61
--- NOTE | 2019-11-09 12:40 | NUR ---
PATIENT NOT WANTING TO LEAVE WITH EMS WITHOUT HER WHEELCHAIR AND WALKER. CHARGE NURSE CELSA ROBERTSON IN TO SPEAK WITH PATIENT. PATIENT ALREADY DENIED GOING WITH [facility] AND REQUESTED TO LEAVE VIA STRETCHER. CELSA IN TO EXPLAIN TO PATIENT "WE CANNOT KEEP TURNING AWAY RESOURCES/AMBULANCES AND WE CAN MAKE SURE YOUR FAMILY GETS YOUR EQUIPMENT." PATIENT FELT UPSET IN REGARDS TO LEAVING BEHIND WHEELCHAIR AND WALKER. 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
--- NOTE | 2019-11-09 12:44 | NUR ---
PATIENT DISCHARGED FROM FACILITY. PATIENT GATHERED ALL PERSONAL BELONGINGS. DISCHARGE INSTRUCTIONS GIVEN TO PATIENT. PATIENT TRANSFERRED VIA EMS TO [facility] VIA STRETCHER. NO S/S OF DISTRESS WHEN LEAVING FACILITY.
--- NOTE | 2019-11-09 13:05 | Consultation ---
DATE OF CONSULTATION: 11/08/2019 The patient was seen on November 07. REASON FOR CONSULTATION: UTI. HISTORY OF PRESENT ILLNESS: This patient is very pleasant 79-year-old white female, who has history of recurrent UTI, hip replacement, degenerative joint disease, chronic end-stage kidney disease, obesity with BMI of 31, hypertension, coronary artery disease. She has a chronic indwelling catheter, she will change every 3 weeks. She has neurogenic bladder. She had transverse thoracic myelitis in 1992. Since then, . The patient continued to have recurrent bacteriuria and UTI. It took several courses of oral antibiotic . The patient was admitted because she is having weakness in her left leg. She denies any fever or chills, but she thinks she has a UTI. When I asked her specifically about that, she thinks that her neurological complaint is from it. She does have some discomfort in the vaginal area and she uses hormonal replacement therapy with viws-tlx-qejmaks and herbals. Nothing really prescribed. The patient denies any fever or chills. She had a suprapubic discomfort. The patient was seen as mentioned above on November 07. I thought I dictated a full note, but upon system, I do not see, so I am doing the note again. I went back and forth with the patient and with Dr. Tsai. The patient did have less than 10,000 Citrobacter freundii. Her urine, which is from the Lloyd catheter, seemed really clear. PAST MEDICAL HISTORY: As mentioned above. ALLERGIES: PENICILLIN, CEPHALEXIN, LEVOFLOXACIN. UTI bacteriuria, recurrent "UTI", partial paraplegic, transverse thoracic myelitis since 1992, chronic kidney disease, hypertension with heart disease, obesity, irritable bowel syndrome, hypothyroidism, diverticular disease. She has history of diverting colostomy, history of laparotomy, colon resection, total abdominal hysterectomy, bilateral tubal ligation, rectocele repair, left femur open reduction and internal fixation recently.UTI FAMILY HISTORY: Multiple sclerosis. SOCIAL HISTORY: There is no smoking, drug abuse, or alcohol abuse. MEDICATIONS: At home, she is on: 1. Alprazolam. 2. Baclofen. 3. Dicyclomine. 4. Losartan. REVIEW OF SYSTEMS: At the present time as mentioned above all is negative except for mentioned above. LABORATORY DATA: Reviewed since admission. PHYSICAL EXAMINATION: GENERAL: She is currently alert, oriented, does not seem to be in acute distress. VITAL SIGNS: Stable. Currently afebrile. HEENT: She is not icteric. NECK: Supple. CHEST: Clear bilateral. HEART: S1, S2. No S3, S4, or murmur. ABDOMEN: Soft. Bowel sounds present. No tenderness. No hepatosplenomegaly. EXTREMITIES: No edema. SKIN: No rash. IMPRESSION/PLAN: 1. I think the patient has bacteriuria. There is no need for antibiotic treatment. I would recommend to give her Hiprex 1 g p.o. b.i.d. for rest of her life. 2. Chronic catheter. I would recommend not to change it and the urine looked clear, only to change it if the tubing looked really dirty and full of sediment. 3. I think her neurological symptoms, the weakness, the debility, and cannot lift up her leg are due to her exacerbation of her neurological illness. 4. Chronic kidney disease. 5. I am concerned as if she would take antibiotic that can do more damage than good because of her kidney function. 6. Hypertension. 7. Obesity. 8. Irritable bowel syndrome. 9. I had a very extensive discussion with the patient and her doctors to explain my recommendations and not to give antibiotic at the present time and not to change the catheter as frequent as she has been. She is to see me as an outpatient. MD IRMA Austin/ALEJO /[id number]
--- NOTE | 2019-11-09 13:38 | NUR ---
WHEELCHAIR AND WALKER GIVEN TO PATIENT. Addendum: 11/09/19 at 1356 by Radha Pineda RN WHEELCHAIR AND WALKER GIVEN TO PATIENTS FAMILY.
== END 2019-11-09 12:44 | DRG 698 ==
LOC: MED/SURG 17:01
PROVIDERS: ADMIT Internal Medicine; ATTEND Internal Medicine
DX: T83.518A Infection and inflammatory reaction due to other urinary catheter, initial encounter (principal); A41.9 Sepsis, unspecified organism; N17.0 Acute kidney failure with tubular necrosis; N39.0 Urinary tract infection, site not specified; G82.22 Paraplegia, incomplete; Z96.0 Presence of urogenital implants; N31.9 Neuromuscular dysfunction of bladder, unspecified; N39.498 Other specified urinary incontinence; M16.11 Unilateral primary osteoarthritis, right hip; E66.9 Obesity, unspecified; Z68.35 Body mass index [BMI] 35.0-35.9, adult; I13.10 Hypertensive heart and chronic kidney disease without heart failure, with stage 1 through stage 4 chronic kidney disease, or unspecified chronic kidney disease; Z93.3 Colostomy status; N18.3 Chronic kidney disease, stage 3 (moderate); I25.10 Atherosclerotic heart disease of native coronary artery without angina pectoris; K58.9 Irritable bowel syndrome, unspecified; B96.1 Klebsiella pneumoniae [K. pneumoniae] as the cause of diseases classified elsewhere; B96.89 Other specified bacterial agents as the cause of diseases classified elsewhere; K57.90 Diverticulosis of intestine, part unspecified, without perforation or abscess without bleeding; I50.9 Heart failure, unspecified
CPT/HCPCS: 36415; 71045; 74176; 80048; 80053; 81001; 85025; 85610; 85651; 85730; 86140; 87086; 87186; 96360; 96361; 97139; J7030

== ENCOUNTER 2019-11-22 16:40 | Inpatient (IN) | payer MEDICARE ==
[~2019-11-22] VITALS: Ht 162.6 cm; Wt 91.2 kg
[~2019-11-22 16:40] MED LIST changes: +DEXAMETHASONE SOD PHOS INJ 4 MG/ML VIAL ONE; +EPHEDRINE SULFATE INJ 50 MG/ML VIAL ONE; +HIPREX1 GM PO; +LABETALOL HCL 5 MG/ML 20ML VIAL ONE; +LIDOCAINE HCL 2% LOCAL INJ 5 ML SDV VIAL INJ ONE; +LOSARTAN POTASS25 MG PO; +NAPROXEN250 MG PO; +ONDANSETRON HCL INJ 2MG/ML 2ML 2 MG/ML VIAL ONE; +PROPOFOL IV EMULSION 10 MG/ML 20 ML VIAL ONE; +SEVOFLURANE INHAL SOLN 250 ML PEN BTL ONE; +nystatin cream TOP
--- NOTE | 2019-11-22 17:47 | Diagnostic Imaging Report ---
Radiographs of the right hip HISTORY: Pain COMPARISON: None available. FINDINGS: Bones: No acute displaced fracture. Osseous alignment is within normal limits. Joints: Scattered degenerative change. No osseous erosion. Soft tissues: The soft tissues appear unremarkable. IMPRESSION: Scattered degenerative change. No osseous erosion. Signed by: Dr. Nathan Gandhi M.D. on 11/22/2019 5:44 PM
--- NOTE | 2019-11-22 17:52 | Diagnostic Imaging Report ---
Radiographs of the right tibia/fibula. Radiographs of the right ankle. HISTORY: Pain. Fall COMPARISON: None available. FINDINGS: Bones: Comminuted displaced intra-articular distal right tibial fracture. Comminuted mildly displaced intra-articular distal right fibular fracture Joints: Scattered degenerative change. Inferior calcaneal bone spur. Soft tissues: Soft tissue swelling. Chondrocalcinosis in the knee joint. IMPRESSION: Comminuted displaced intra-articular distal right tibial fracture. Comminuted mildly displaced intra-articular distal right fibular fracture. Scattered degenerative change with chondrocalcinosis in the knee joint. Correlate for CPPD Signed by: Dr. Nathan Gandhi M.D. on 11/22/2019 5:49 PM
[2019-11-22] MEDS ORDERED: MORPHINE SULFATE 2 MG/ML SYR 1ML IV PRN (18:45)
[2019-11-22] MEDS ORDERED: ONDANSETRON HCL INJ 2MG/ML 2ML 2 MG/ML VIAL IV PRN (18:45)
[2019-11-22] MEDS ORDERED: FENTANYL CITRATE/PF 100MCG/2 ML INJ IV ONE (18:45)
[2019-11-22] MEDS ORDERED: HEPARIN SOD (PORCINE) 5,000 UNIT/ML VIAL SC ONE (19:00)
--- NOTE | 2019-11-22 19:08 | NUR ---
ARRIVED WITH INDWELLING BOLIVAR CATH TO LEG BAG. CHANGED TO BOLIVAR BAG. COLOSTOMY. HX OF MYLITIS AND PT IS NON AMBULATORY, BUT DOES BEAR WT TO TRANSFER USUALLY. RT LEG LONG SLPINT TO KNEE OF POSTERIOR/STIRRUP. PT TOLERATED FAIRLY WELL. PT WANTING IV EXACT SITE AND MULTIPLE CHANGES OF ARM, SITE, SIZE. WANT PT TO BE HAPPY AND SATISFIED SO INFORMED PT RN WILL LET ANOTHER NURSE COME LOOK FOR SPECIFIC SITE FOR PT.
[2019-11-22 19:20] LABS: BASOPHILS # (AUTO) 0.1 (0.0-0.1); BASOPHILS % 0.6 % (0.0-1.0); EOSINOPHILS # (AUTO) 0.2 (0.0-0.4); HEMATOCRIT 38.8 % (34.2-44.1); HEMOGLOBIN 12.5 g/dL (12.0-16.0); LYMPHOCYTES # (AUTO) 0.9 (1.0-3.2); MEAN CORPUSCULAR HEMOGLOBIN 30.2 pg (28-32); MEAN CORPUSCULAR HGB CONC 32.2 g/dL (31-35); MEAN CORPUSCULAR VOLUME 93.7 fL (81-99); MONOCYTES # (AUTO) 1.2 (0.2-0.8); MONOCYTES % 8.5 % (4.4-11.3); NEUTROPHILS # (AUTO) 11.9 (2.1-6.9); NEUTROPHILS % 83.2 % (38.7-80.0); PLATELET COUNT 295 x10e3/uL (140-360); RED BLOOD COUNT 4.14 x10e6/uL (3.6-5.1); RED CELL DISTRIBUTION WIDTH 14.4 % (11.7-14.4)
[2019-11-22 19:28] LABS: PROTHROMBIN TIME 13.8 seconds (11.9-14.5)
[2019-11-22 19:38] LABS: ALBUMIN 2.8 g/dL (3.5-5.0); ALBUMIN/GLOBULIN RATIO 0.8 (0.8-2.0); ANION GAP 11.2 mmol/L (8-16); CREATININE, SERUM 1.27 mg/dL (0.57-1.11); POTASSIUM 4.2 mmol/L (3.5-5.1)
[2019-11-22 21:00] VITALS: BP 128/77
[2019-11-22 21:04] LABS: BILIRUBIN,URINE NEGATIVE (NEGATIVE); CLARITY,URINE SL CLOUDY (CLEAR); COLOR,URINE YELLOW (YELLOW); KETONES,URINE NEGATIVE (NEGATIVE); LEUKOCYTE ESTERASE ,URINE TRACE (NEGATIVE); NITRITE,URINE POSITIVE (NEGATIVE); PROTEIN,URINE DIPSTICK NEGATIVE (NEGATIVE); URINE UROBILINOGEN 0.2 mg/dL (0.2 - 1)
[2019-11-22 21:22] LABS: BACTERIA,URINE MODERATE /HPF; EPITHELIAL CELLS,URINE MANY /LPF; RBC,URINE 0-5 /HPF (0-5); TRANSITIONAL EPI CELLS,URINE MODERATE
--- NOTE | 2019-11-22 21:22 | Diagnostic Imaging Report ---
EXAMINATION: CHEST SINGLE (NOT PORTABLE) INDICATION: Preop COMPARISON: Abdominal CT 11/07/2019, chest x-ray 11/06/2019 FINDINGS: TUBES and LINES: None. LUNGS: Normal lung volumes. Lungs are clear. No consolidations. PLEURA: No pleural effusion or pneumothorax. HEART AND MEDIASTINUM: The cardiomediastinal silhouette is unremarkable. BONES AND SOFT TISSUES: No acute osseous lesion. Soft tissues are unremarkable. UPPER ABDOMEN: No free air under the diaphragm. IMPRESSION: No acute thoracic radiographic abnormality. Signed by: Prabhjot Beard DO on 11/22/2019 9:18 PM
--- NOTE | 2019-11-22 21:36 | Diagnostic Imaging Report ---
EXAM: CT of the right ankle without contrast INDICATION: Fall, trauma, pain, fracture COMPARISON: Same day right ankle x-rays. TECHNIQUE: Multidetector CT scanning of the right ankle was performed. Coronal and sagittal multiplanar reformations were obtained. RADIATION DOSE: Total DLP: 146 mGy*cm Estimated effective dose: (DLP x 0.014 x size factor) mSv CTDIvol has been reviewed. It is below the limits set by the Radiation Protocol Committee (RPC). Dose modulation, iterative reconstruction, and/or weight based adjustment of the mA/kV was utilized to reduce the radiation dose to as low as reasonably achievable. FINDINGS: Bones: Comminuted impacted minimally displaced and angulated distal tibial metaphyseal fracture. Fracture line extends to the mesial tibial plafond, and to the medial malleolus root, within isolated nondisplaced medial malleolus fragment. Comminuted minimally angulated nondisplaced distal fibular fracture, fracture line extends to the distal tibial fibular joint, slightly above the level of the tibial plafond articular surface. Joints: No dislocations. Ankle mortise orientation and space intact. Soft Tissues: Extensive soft tissue edema in the lower leg, ankle and foot. IMPRESSION: Comminuted intra-articular distal tibial and fibular fractures as described above above. Signed by: Prabhjot Beard DO on 11/22/2019 9:33 PM
--- NOTE | 2019-11-22 21:40 | NUR ---
ORTHOPEDIC CONSULTATION 79 year old minimal ambulator presents to the ED after a witness mechanical fall while in rehab. Patient presents with complaints of right hip and right lower leg pain. Denies new numbness, paresthesias and loss of distal motor function. Denies pain in any other extremity PMDHx: Recurrent UTI, Degenerative joint disease, ESRD, Obesity, HTN, CAD, Chronic indwelling catheter, Neurogenic bladder, Transverse thoracic myelitis, B acteruris ALLERGIES: Penicillin, Cephalexin, Ciprofloxacin, Tetanus, Codeine, Morphine FAMILY HISTORY: Multiple sclerosis. SOCIAL HISTORY: There is no smoking, drug abuse, or alcohol abuse. MEDICATIONS: See Med Reconciliation REVIEW OF SYSTEMS: At the present time as mentioned above all is negative except for mentioned above. VS: T 98.7 HR 79 RR 19 BP 113/83 O2 100% Gen: AAOx3, NAD Right Lower Leg In Splint - no open lesions or sores Swelling of skin noted TTP of fibula and anterior distal tibia Motor: + EHL, EDL, FHL, FDL Sensation intact to light touch Pulses + DP, good capillary refill Compartments soft Right Hip Unable to straight leg raise No pain with log roll TTP of superior pubic rami No open lesions or sores, no gross deformity CT and Xrays of Right Ankle and Tib-Fib Intra-articular comminuted right distal tibia and fibula fracture Xray of Pelvis and hip No gross fracture or dislocation noted. Degenerative joint disease of the right hip noted 79 year old female with right intra-articular pilon and distal fibula fracture with right hip pain 1. Follow up right hip CT 2. Right lower leg reduced and placed in splint in the ED 3. Analgesics 4. NWB 5. Strict Rest, Ice & Elevation of RLE 6. Due to nursing requirements and patient's use of legs for transfers, plan for ORIF vs. Ex-Fix of distal tibia and fibula 7. NPO except meds after midnight 8. IVF while NPO 9. Heparin one dose for DVT Prophylaxis 10. Hold anticoagulation after midnight 11. Follow up stat CBC, CMP, PT/INR, PTT, Type & Screen, Urinalysis, Thank you for the consultation Juhi Melissa, DO [facility] [place].
[2019-11-22] MEDS ORDERED: ENEMA READY TO133 ML RC (22:52)
--- NOTE | 2019-11-22 23:23 | NUR ---
patient received via stretcher accompanied by echocardiograph tech. AAO x 4. Patient showed no signs of distress. Patient initial admission assessment completed. Stage 2 pressure ulcer noted to right upper buttock next to sacrum area, otherwise skin is intact elsewhere. Duoderm and calazime applied. Lloyd catheter in place with stat lock to left upper thigh. Colostomy to left upper abdomen intact and stable. Right lower extremity wrapped with NELI and foam dressing. Patient cleaned up. Gliding evelyn placed underneath patient. Patient's home medicines have been entered in the med rec section. Dr. Tsai paged for home meds continuation. Also , pain medication order for Dilaudid 0.5mg IVP Q3hr PRN for pain moderate to severe pain.(4-10). patient remains resting in bed with ice pack to right lower extremity. Comfortable at the moment. will continue to monitor patient. Dr. Kumar saw patient in ER and patient states planned surgery tomorrow.
[2019-11-23] VITALS (7 sets, daily range): BP systolic 96–119; BP diastolic 62–82
[2019-11-23] MEDS: HYDROMORPHONE 1MG/1ML INJ IV PRN ×4 (00:21→08:05)
[2019-11-23] MEDS ORDERED: ALPRAZOLAM 0.5 MG TAB PO PRN (02:30)
[2019-11-23] MEDS ORDERED: SOD PHOSPHATE/SOD BIPHOSPHATE ENEMA 132 ML BTL PR PRN (02:30)
--- NOTE | 2019-11-23 08:00 | NUR ---
Patient continues to c/o severe spasms in right lower extremity after receiving Dilaudid. OK per Dr. Tsai to give patient po Baclofen with a sip of water and another dose of 0.5mg Dilaudid
[2019-11-23] MEDS: BACLOFEN 10 MG TAB PO SCH ×3 (08:10→17:45)
--- NOTE | 2019-11-23 08:48 | History and Physical ---
CHIEF COMPLAINT: "I fell down." HISTORY OF PRESENT ILLNESS: This 79-year-old white woman, who was transferred from a local [facility] facility, namely [facility] to [facility] because of intense pain in her right lower extremity. Apparently on day of admission, the patient suffered a mechanical fall while transferring from her bed to wheelchair, which resulted in a right-sided comminuted distal intra-articular tibia and fibular fracture. This fracture was initially seen on plain film, that was confirmed by a computed tomography. The decision was made to admit the patient for pain control and Orthopedic evaluation. According to nursing staff, the patient will be going to the operating room today. The patient complains of intense pain in her right lower extremity. The patient also has history of recurrent urinary tract infection. In fact, she was here 2 weeks ago with a diagnosis of urinary tract infection. At that time, she was found to have Citrobacter freundii bacterial species growing in her urine. The patient was seen by Infectious Disease specialist, namely Dr. Olson, who felt like her urine was colonized and he did not recommend further antibiotic therapy. At this time, the patient does not complain of any urinary tract infection type symptoms, but on this admission urinalysis did reveal slightly cloudy yellow urine with trace blood, trace leukocyte esterase, 6 to 10 white blood cells per high-power field, moderate bacteria, but many epithelial cells. On this admission, the patient's BUN and creatinine are 20 and 1.27 respectively with potassium 4.2. On this admission, white blood cell count is 14,300 with 83% segmented neutrophils. Hemoglobin is 12.5 g/dL. REVIEW OF SYSTEMS: GENERAL: Weight is stable. No fever or chills. HEENT: No headaches. No vision changes. CARDIOVASCULAR/RESPIRATORY: No chest pain. No shortness of breath or cough. GI: No nausea, vomiting, or constipation, but the patient does have a diverting colostomy in place. : She has an indwelling Lloyd catheter and she suffers from recurrent urinary tract infection as previously stated. 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 She complains of intense pain in her right lower extremity from her recent fracture. ALLERGIES: 1. PENICILLIN. 2. TETANUS VACCINE/TOXOID. 3. CIPROFLOXACIN. 4. CODEINE. 5. LEVOFLOXACIN. 6. MORPHINE. HOME MEDICATIONS: 1. Gabapentin 200 mg t.i.d. 2. Nystatin applied to affected area twice a day. 3. Baclofen 20 mg daily. 4. Losartan 25 mg daily. 5. [place] Thyroid 60 mg daily. 6. Alprazolam 0.5 mg once daily as needed for anxiety. 7. Dicyclomine 20 mg t.i.d. p.r.n. abdominal cramping. 8. Acetaminophen 650 mg every 6 hours p.r.n. arthritic pain or temperature 99.5 or higher. PAST MEDICAL HISTORY: 1. Recurrent urinary tract infection. 2. Stage 3 chronic kidney disease. 3. Hypertensive heart disease. 4. Mild obesity, BMI 34. 5. 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 6. Neurogenic bladder secondary to transverse thoracic myelitis in 1992, requiring indwelling Lloyd catheter. 7. Irritable bowel syndrome. 8. Hypothyroidism. 9. Diverticular disease. PAST SURGICAL HISTORY: 1. Diverting colostomy placement. 2. Exploratory laparotomy with colonic resection. 3. Total abdominal hysterectomy. 4. Bilateral tubal ligation. 5. Rectocele repair. 6. Left femur open reduction and internal fixation. FAMILY HISTORY: Mother had multiple sclerosis. SOCIAL HISTORY: This woman is a and she lives with adult daughter. The patient was a heavy tobacco smoker, but quit in 1993. The patient has no history of alcohol or illicit drug use. The patient has been staying for the last 2 weeks at a [facility] facility, namely [facility], where she has been receiving therapy. PHYSICAL EXAMINATION: GENERAL: She is alert. She is in obvious pain. VITAL SIGNS: The patient's height is 5 feet 4 inches, weight 185 pounds, BMI 34. Blood pressure is 99/66, pulse is 88, respiratory rate 22, temperature is 97.7, and oxygen 95% on room air. Her temperature did get as high as 99.5 at 4 o'clock this morning. INTEGUMENT: Skin is warm and dry. No pallor, jaundice, or diaphoresis. HEENT: Anicteric sclerae. Moist mucous membranes. NECK: Supple. CARDIOVASCULAR: Distant heart sounds, tachycardic rate and rhythm. LUNGS: Coarse breath sounds bilaterally. ABDOMEN: Obese, benign. She has a diverting colostomy bag in the left lower quadrant area. EXTREMITIES: Her right lower leg is currently dressed. NEUROLOGIC: As previously stated, she has incomplete paraplegia. DIAGNOSES: 1. Comminuted right distal tibia/fibular fracture. 2. Hypertensive heart disease. 3. 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 4. Stage 3 chronic kidney disease. 5. Obesity, BMI 34. 6. Recurrent urinary tract infection. PLAN: 1. Pain control. 2. Tentative surgery today. 3. Appreciate Orthopedics input. 4. We will send urine for culture. 5. We will likely empirically start intravenous meropenem since the patient has a history of recurrent urinary tract infection and she is transferring from a local [facility]. I spent 45 minutes in the care of this patient. MD BRENTON Schilling/ALEJO /[id number] [id number]
--- NOTE | 2019-11-23 08:50 | NUR ---
UC collected and taken to lab
[2019-11-23] MEDS: NYSTATIN 100,000 UNITS/GM CRM 30GM TUBE TOP SCH ×2 (09:00→17:00)
[2019-11-23] MEDS: GABAPENTIN 100 MG CAP PO SCH ×3 (09:00→21:03)
[2019-11-23] MEDS: THYROID 60 MG TAB PO SCH (09:00)
[2019-11-23] MEDS: METHENAMINE HIPPURATE 1 GM PO SCH ×2 (09:00→21:00)
--- NOTE | 2019-11-23 10:40 | NUR ---
Pt. states she has discomfort at this time. Range Operator provided hospitality and information on how to reach vice president medical affairs, if needed. EMILY WILLAMS Range Operator Spiritual Care Department O: [phone]
--- NOTE | 2019-11-23 12:30 | NUR ---
Patient off of the floor to go to OR
[2019-11-23] MEDS ORDERED: CLINDAMYCIN PHOS 900MG/ 50ML 50 ML IV ONE (13:33)
[2019-11-23] MEDS ORDERED: BUPIVACAINE HCL 0.5% INJ 30 ML VIAL INJ ONE (13:38)
[2019-11-23] MEDS ORDERED: BACITRACIN 50,000 UNIT VIAL ONE (13:39)
--- NOTE | 2019-11-23 13:43 | NUR ---
PT DAUGHTER DOES NOT WANT [facility] TO [facility]
[2019-11-23] MEDS ORDERED: MEROPENEM 500MG 500 MG in SODIUM CHLORIDE 0.9% 50ML 50 ML IV SCH (14:00)
--- NOTE | 2019-11-23 14:15 | NUR ---
WOUND CARE CONSULT FOR 79 YO FEMALE HX OF TIBIA /FIBIA FX LESLIE 16 ON MODERATE PUP STATUS AND INTERVENTIONS AND VISCO MATTRESS LABS: WBC-14.32 HGB_12.5 GLUCOSE-105 SKIN ASSESSMENT COMPLETE PATIENT PRESENTS WITH RIGHT BUTTOCKS STAGE 2 ULCERATION MEASURES 3CMX 2.5CM X.1CM RECOMMENDATIONS: NURSING TO CONTINUE TO MAINTAIN MODERATE PUP STATUS AND INTERVENTIONS AND VISCO MATTRESS NURSING TO CONTINUE TO ASSIST PATIENT OUT OF BED FOR MEALS AND MUCH TOLERATED NURSING TO CONTINUE TO ASSIST PATIENT NEEDED WITH MEALS AND NUTRITIONAL SUPPLEMENTS TO ENSURE PROPER REQUIREMENTS FOR HEALING NURSING TO CONTINUE TO OFFLOAD FEET AND HEELS NEEDED WITH PILLOW SUSPENSION WHEN IN BED NURSING TO CLEAN RIGHT BUTTOCKS STAGE 2 ULCERATION WITH NORMAL SALINE DAILY AND APPLY VENELEX OINTMENT AND ALLEVYN FOAM DRESSING Addendum: 11/23/19 at 1419 by Kavin Patton RN Amended: Links added.
[2019-11-23] MEDS ORDERED: FENTANYL CITRATE/PF 100MCG/2 ML INJ ONE (14:30)
[2019-11-23] MEDS ORDERED: VANCOMYCIN HCL 1 GM VIAL ONE (15:05)
[2019-11-23] MEDS ORDERED: HYDROGEN PEROXIDE 120 ML BTL ONE (15:29)
--- NOTE | 2019-11-23 16:34 | NUR ---
Nutrition Screen Note RD Recommendation for Physician: - When feasible, ADAT to goal of Cardiac diet Plan of Care: RD following, monitoring for tolerance and adequacy Nutrition reason for involvement: Stage II PU on admit Primary Diagnose(s): tibia fracture s/p fall PMH: DJD, CAD, recurrent UTIs, hypertensive heart disease, incomplete paraplegia 2/2 transverse thoracic myelitis, IBS, hypothyroidism, diverticular disease Ht: 64 in Wt: 201 lb BMI: 34.5 kg/m2 IBW: [address] Assessment: 11/22: 79 YOF admitted from SNF for hip fx s/p fall, undergoing surgical evaluation. Pt evaluated today per stage II PU on admit. Called pt, no answer- unable to obtain recent hx. Pt recently hospitalized at the end of October. Pt with good intake of 75-100% of meals 2 weeks ago and no wt loss noted per prior admit wts. Chart reviewed. Labs and meds noted. Will continue to monitor. Current Diet: NPO Malnutrition Evaluation 11/23/19 The patient does not meet criteria for a specified degree of malnutrition at this time. Will re-evaluate at follow-up as appropriate. Diet Education Needs Assessment: Diet education not indicated, pt on temporary diet. Diet tolerance: pending Nutrition Care Level: low Signed: Deepika Mcdaniel RD, LD, [facility]
--- NOTE | 2019-11-23 17:02 | NUR ---
Patient is back to the floor from the OR. She is awake alert and oriented x3. LAUNDRY MACHINE OPERATOR is at the bedside. Patient's right lower extremity is wrapped with roe wrap, splinted, elevated and iced. Ice pack was removed by PACU nurse bc it has been in place for 30 min. Patient denies needing anything at this time, colostomy bag in place, foreman in place. PACU nurse reported IV came out in the OR at some point and was attempted to restart x 2 RN's and anaesthesia with ultrasound machine with no success. Patient reports they have attempted a PICC line in the past but not been able to place successfully. Patient requests a central line.
--- NOTE | 2019-11-23 17:23 | NUR ---
Notified Dr. Tsai about patient having no IV access and being unsuccessful in PACU in restarting IV. Orders received for PICC line placement
[2019-11-23] MEDS: LOSARTAN POTASSIUM 25 MG TAB PO SCH (17:52)
[2019-11-23] MEDS: HYDROCODONE/APAP 7.5MG-325MG 1 EA TAB PO PRN (18:43)
--- NOTE | 2019-11-23 19:10 | NUR ---
RECEIVED REPORT FROM PREVIOUS NURSE. CALL LIGHT WITHIN REACH. PATIENT IN BED. RIGHT LEG ELEVATED ON PILLOWS
[2019-11-23] MEDS: MEROPENEM 500MG/ NS 50ML 50 ML IV SCH (21:00)
[2019-11-23] MEDS: DICYCLOMINE HCL 20 MG TAB PO PRN (21:07)
--- NOTE | 2019-11-23 21:43 | NUR ---
PREOPERATIVE DIAGNOSIS: Right Intra-articular Comminuted Distal Tibia and Distal Fibula Fracture POSTOPERATIVE DIAGNOSIS: Right Intra-articular Comminuted Distal Tibia and Distal Fibula Fracture PROCEDURE PERFORMED: Open Reduction and Internal Fixation of Right Distal Tibial and Distal Fibular fracture with Allograft. Flouroscopic Interpretation ELECTRONIC COMPONENTS ASSEMBLER: RAYMOND Bui (required due to complexity of the case) ANESTHESIA: General. TOURNIQUET TIME:128 minutes. COMPLICATIONS: None. BLOOD LOSS: 50 cc INDICATIONS FOR SURGERY: This is 79 year old female who had a mechanical fall and was found to have a Right Intra-articular Comminuted Distal Tibia and Distal Fibula Fracture. She was admitted to the hospital and as soon as her ankle swelling was controlled she underwent Open Reduction and Internal Fixation of Right Distal Tibial and Distal Fibular fracture with Allograft with Flouroscopic Interpretation OPERATIVE PROCEDURE: The patient was taken to the operative room where general anesthesia was successfully introduced. The right lower leg was prepped and draped in standard fashion. The tourniquet was applied about the right upper thigh. An Esmarch tourniquet was used to exsanguinate the ankle. The tourniquet was insufflated to a pressure 250mm for approximately 128 minutes. An incision was made over the lateral distal fibula with care was taken to spare overlying nerves and vessels. An elevator was used to expose the fracture. The fracture was freed of old hematoma and reduced with a reducing clamp. Due to the comminution and her poor bone quality a locking Suhail Variax 5 hole distal fibula plate was placed on the lateral fibula in bridge plate fashion. It was secured with locking and non-locking screws. The intraoperative image showed excellent reduction. Stability of fracture was achieved. A medial incision along the medial border of the tibia was used and the medial malleolus was exposed with care to avoid the saphenous vessel and nerve. Under flouroscopic interpretation a Suhail 6 hole axos 3 medial right distal tibial plate was placed in proper position. The plate was fixed distally with locking screws and then secured proximally with a combination of locking and cortical screws. Fracture stability was obtained in tolerable position. The anteromedial cortical defect was used as a window to place 15 cc of cancellous chips and DBX. Flouroscopy was used and found to fill the void well. Final fluoroscopy showed a reduction to be anatomic. The wound was irrigated with copious amounts of normal saline and vancomycin powder was sprinkled over the incision. . Deep tissue was closed with 0 Vicryl with the subcutaneous tissue being closed with 2-0 vicryl. The skin was approximated with3-0 Monocryl. Dressings with steristrips, xeroform, 4x4s and ABD were applied. The patient was then placed in a well padded trilaminar splint. She awoke without difficulty and was transferred to the recovery room in stable condition.
[2019-11-23] MEDS: CLINDAMYCIN PHOS 900MG/ 50ML 50 ML IV SCH (22:00)
--- NOTE | 2019-11-23 22:14 | NUR ---
pt not a candidate for picc or midline has obstructions to both arms pt asked picc nurse to try would not advance to svc nurse lea informed pt will need central lines from now on. prior picc attempts unsuccessful as well from other picc nurses
[2019-11-24] VITALS (8 sets, daily range): BP systolic 96–132; BP diastolic 50–68
[2019-11-24] MEDS: MEROPENEM 500MG/ NS 50ML 50 ML IV SCH ×3 (05:00→21:43)
[2019-11-24] MEDS: CLINDAMYCIN PHOS 900MG/ 50ML 50 ML IV SCH ×2 (05:46→14:53)
[2019-11-24] MEDS: BACLOFEN 10 MG TAB PO SCH ×3 (05:50→21:43)
[2019-11-24 05:57] LABS: BASOPHILS # (AUTO) 0.1 (0.0-0.1); BASOPHILS % 0.6 % (0.0-1.0); EOSINOPHILS # (AUTO) 0.3 (0.0-0.4); HEMATOCRIT 34.4 % (34.2-44.1); HEMOGLOBIN 10.8 g/dL (12.0-16.0); LYMPHOCYTES # (AUTO) 0.7 (1.0-3.2); LYMPHOCYTES % 5.4 % (18.0-39.1); MEAN CORPUSCULAR HEMOGLOBIN 29.4 pg (28-32); MEAN CORPUSCULAR HGB CONC 31.4 g/dL (31-35); MEAN CORPUSCULAR VOLUME 93.7 fL (81-99); MONOCYTES # (AUTO) 1.1 (0.2-0.8); MONOCYTES % 9.2 % (4.4-11.3); NEUTROPHILS # (AUTO) 10.1 (2.1-6.9); NEUTROPHILS % 82.2 % (38.7-80.0); PLATELET COUNT 284 x10e3/uL (140-360); RED BLOOD COUNT 3.67 x10e6/uL (3.6-5.1); RED CELL DISTRIBUTION WIDTH 14.3 % (11.7-14.4)
[2019-11-24 06:05] LABS: ALBUMIN 2.4 g/dL (3.5-5.0); ALBUMIN/GLOBULIN RATIO 0.7 (0.8-2.0); ANION GAP 11.5 mmol/L (8-16); CALCIUM 9.1 mg/dL (8.4-10.2); CREATININE, SERUM 1.2 mg/dL (0.57-1.11); POTASSIUM 4.5 mmol/L (3.5-5.1)
[2019-11-24] MEDS: HYDROCODONE/APAP 7.5MG-325MG 1 EA TAB PO PRN ×3 (06:16→18:16)
--- NOTE | 2019-11-24 07:11 | NUR ---
GAVE BEDSIDE SHIFT REPORT TO ONCOMING NURSE. CALL LIGHT WITHIN REACH. PATIENT IN BED.
--- NOTE | 2019-11-24 08:15 | NUR ---
SPOKE WITH DAUGHTER SARA AND SHE STATES DOESNT WANT MOTHER TO GO BACK TO [facility], GAVE A COUPLE OF OTHER OPTIONS AND SHE WOULD LIKE TO SPEAK WITH DR BARRON ABOUT THEM AND GO WITH HIS RECOMMENDATION. WILL SPEAK WITH DR BARRON AND CALL DAUGHTER BACK.
--- NOTE | 2019-11-24 08:33 | NUR ---
ORTHOPEDIC PROGRESS NOTE Patient seen & examined, pain well controlled. No fevers or chills. Resting comfortably at bedside. T 98.7 HR 88 RR 20 BP 99/50 O2 93% Right Lower leg in splint - clean dry and intact Motor: + EHL, EDL, FHL, FDL Sensation grossly intact Pulses + DP, capillary refill Compartments soft H/H 10.8/34.4 79 yo F s/p Right Distal Tibial Plafond and Fibula ORIF Analgesics DVT prophylaxis as per medicine Physical Therapy NWB RLE Keep splint clean, dry and intact When out of PT, strict ice and elevation Orthopedically stable Follow up in office in 2 weeks. Juhi Melissa, DO [facility] [place] [address], [place] [address]
[2019-11-24] MEDS: GABAPENTIN 100 MG CAP PO SCH ×3 (09:00→21:43)
[2019-11-24] MEDS: METHENAMINE HIPPURATE 1 GM PO SCH ×2 (09:00→21:00)
[2019-11-24] MEDS: BALSAM PERU/CASTOR OIL 60 GM OINT...G. TP SCH (09:00)
[2019-11-24] MEDS: NYSTATIN 100,000 UNITS/GM CRM 30GM TUBE TOP SCH ×2 (09:00→21:43)
[2019-11-24] MEDS: LOSARTAN POTASSIUM 25 MG TAB PO SCH (09:00)
[2019-11-24] MEDS: THYROID 60 MG TAB PO SCH (09:22)
--- NOTE | 2019-11-24 09:22 | NUR ---
MD WARREN INTO SEE PT, DISCUSSED POC, OKAY TO DISCHARGE FROM HIS STANDPOINT, PT AWAITING CENTRAL LINE PLACEMENT, CONSENT OBTAINED, DENIES PAIN AT THIS TIME, CALL LIGHT WITHIN REACH
--- NOTE | 2019-11-24 09:31 | NUR ---
PT REFUSED VENELEX ORDERED, STATES SHE IS SUPPOSED TO USE "SOMETHING WITH HONEY, CANNOT REMEMBER NAME", WILL ASK MD UPON ROUNDING
--- NOTE | 2019-11-24 12:17 | NUR ---
MD Houston SULTANA INTO SEE PT, DISCUSSED POC, WHEELED OFF UNIT VIA BED FOR CENTRAL LINE PLACEMENT, NO CHANGE IN CONDITION
--- NOTE | 2019-11-24 12:19 | NUR ---
orders for acute rehab choice letter for [facility] signed by pt notified pt's dtr of plan and she is agreeable dr henny cervantes covering for dr tellez and he wants to hold transfer until tomorrow clinicals faxed to [facility] at [phone] mot initiated; plan transfer in am
--- NOTE | 2019-11-24 13:24 | NUR ---
PT BACK IN ROOM, REPOSITIONED, HOB ELEVATED, RLE ELEVATED, ICE APPLIED, SPOKE WITH MIHAELA, AWAITING CALL BACK REGARDING OKAY TO USE CENTRAL LINE, CALL LIGHT WITHIN REACH
--- NOTE | 2019-11-24 13:36 | Diagnostic Imaging Report ---
PROCEDURE: Non-tunneled central venous catheter placement Procedural Personnel Attending physician(s): Savanah Quinonez MD Fellow physician(s): None Resident physician(s): None Advanced practice provider(s): None Pre-procedure diagnosis: Poor venous access Post-procedure diagnosis: Same Indication: Administration of intravenous medications Additional clinical history: None Complications: No immediate complications. IMPRESSION: Insertion of right-sided non-tunneled triple-lumen temporary central venous catheter, with tip in the expected location of the superior vena cava. Plan: The catheter may be used immediately. PROCEDURE SUMMARY: - Venous access with ultrasound guidance - Non-tunneled central venous catheter insertion with fluoroscopic guidance - Additional procedure(s): None PROCEDURE DETAILS: Pre-procedure Consent: Informed consent for the procedure including risks, benefits and alternatives was obtained and time-out was performed prior to the procedure. Preparation (MIPS): The site was prepared and draped using all elements of maximal sterile barrier technique including sterile gloves, sterile gown, cap, mask, large sterile sheet, sterile ultrasound probe cover, hand hygiene and cutaneous antisepsis with 2% chlorhexidine. Medical reason for site preparation exception (MIPS): Not applicable Anesthesia/sedation Level of anesthesia/sedation: No sedation Anesthesia/sedation administered by: Independent trained observer under attending supervision with continuous monitoring of the patient?s level of consciousness and physiologic status Access Local anesthesia was administered. The vessel was sonographically evaluated and determined to be patent. Real time ultrasound was used to visualize needle entry into the vessel and a permanent image was stored. Vein accessed: Internal jugular vein Access technique: Micropuncture set with 21 gauge needle Catheter placement The access site was dilated and the catheter was placed into the vein over a wire under fluoroscopic guidance. The catheter tip location was fluoroscopically verified and a permanent image was stored.. A sterile dressing was applied. Catheter placed: Bard Catheter size ([place] Islander): 7 Catheter length (cm): 16 Catheter flush: Normal saline Catheter securement technique: Non-absorbable suture Contrast Contrast agent: None Contrast volume (mL): NA Radiation Dose Fluoroscopy time (minutes): 0.0 Reference air kerma (mGy): 0.4 Additional Details Additional description of procedure: None Equipment details: None Specimens removed: None Estimated blood loss (mL): Less than 10 Standardized report: [id number] Attestation Signer name: Savanah Quinonez MD I attest that I was present for the entire procedure. I reviewed the stored images and agree with the report as written. Signed by: Savanah Quinonez MD on 11/24/2019 1:32 PM
[2019-11-24] MEDS ORDERED: SODIUM CHLORIDE 0.9% 250ML 250 ML ONE (13:54)
[2019-11-24] MEDS ORDERED: ENOXAPARIN SOD INJ 40 MG/0.4 ML SYR SC SCH (17:00)
--- NOTE | 2019-11-24 19:07 | NUR ---
RECEIVED REPORT FROM PREVIOUS NURSE. CALL LIGHT WITHIN REACH. PATIENT IN BED. BOLIVAR AND COLOSTOMY DRAINING WELL. Addendum: 11/25/19 at 0307 by Ashley Neumann RN DID WALKING ROUNDS
[2019-11-25] MEDS: HYDROCODONE/APAP 7.5MG-325MG 1 EA TAB PO PRN ×2 (00:30→08:46)
[2019-11-25] MEDS: DICYCLOMINE HCL 20 MG TAB PO PRN ×2 (00:31→10:02)
[2019-11-25 01:12] VITALS: BP 106/60
[2019-11-25] MEDS: MEROPENEM 500MG/ NS 50ML 50 ML IV SCH ×2 (05:06→12:57)
[2019-11-25 05:42] VITALS: BP 120/61
[2019-11-25 05:54] LABS: BASOPHILS # (AUTO) 0.1 (0.0-0.1); BASOPHILS % 0.8 % (0.0-1.0); EOSINOPHILS # (AUTO) 0.2 (0.0-0.4); EOSINOPHILS % 2.2 % (0.0-6.0); HEMATOCRIT 29.9 % (34.2-44.1); HEMOGLOBIN 9.7 g/dL (12.0-16.0); LYMPHOCYTES # (AUTO) 0.8 (1.0-3.2); LYMPHOCYTES % 9.7 % (18.0-39.1); MEAN CORPUSCULAR HEMOGLOBIN 30.1 pg (28-32); MEAN CORPUSCULAR HGB CONC 32.4 g/dL (31-35); MEAN CORPUSCULAR VOLUME 92.9 fL (81-99); MONOCYTES % 11.9 % (4.4-11.3); NEUTROPHILS # (AUTO) 6.5 (2.1-6.9); NEUTROPHILS % 74.7 % (38.7-80.0); PLATELET COUNT 286 x10e3/uL (140-360); RED BLOOD COUNT 3.22 x10e6/uL (3.6-5.1); RED CELL DISTRIBUTION WIDTH 14.3 % (11.7-14.4)
[2019-11-25] MEDS ORDERED: THYROID 60 MG TAB PO SCH (06:00)
[2019-11-25 06:04] LABS: ANION GAP 7.9 mmol/L (8-16); CALCIUM 10.1 mg/dL (8.4-10.2); CREATININE, SERUM 1.23 mg/dL (0.57-1.11); POTASSIUM 3.9 mmol/L (3.5-5.1)
--- NOTE | 2019-11-25 07:00 | NUR ---
report received,walking rounds performed, pt resting quietly in bed,
--- NOTE | 2019-11-25 07:10 | NUR ---
GAVE BEDSIDE SHIFT REPORT TO ONCOMING NURSE. CALL LIGHT WITHIN REACH. PATIENT IN THE BED.
--- NOTE | 2019-11-25 08:15 | NUR ---
SPOKE WITH DR BARRON, ORDERS GIVEN TO TRANSFER TO [facility] WHEN READY, ORDERS GIVEN FOR CHANGES TO TRANSFER MEDICATIONS
[2019-11-25 08:24] VITALS: BP 124/59
[2019-11-25] MEDS: GABAPENTIN 100 MG CAP PO SCH (08:37)
[2019-11-25] MEDS: LOSARTAN POTASSIUM 25 MG TAB PO SCH (08:37)
[2019-11-25] MEDS: BACLOFEN 10 MG TAB PO SCH (08:37)
[2019-11-25 08:56] VITALS: BP 124/59
[2019-11-25] MEDS: METHENAMINE HIPPURATE 1 GM PO SCH (08:59)
[2019-11-25] MEDS: NYSTATIN 100,000 UNITS/GM CRM 30GM TUBE TOP SCH (10:01)
[2019-11-25] MEDS: BALSAM PERU/CASTOR OIL 60 GM OINT...G. TP SCH (11:59)
[2019-11-25 12:03] VITALS: BP 110/58
--- NOTE | 2019-11-25 12:57 | NUR ---
report called to [facility] spoke with kindra quezada, ambulance was called for transport
--- NOTE | 2019-11-25 14:14 | NUR ---
PT [facility] BY ST[facility], TELE WAS REMOVED AND GIVEN BACK TO AIRFREIGHT OPERATIONS AGENT, ALL BELONGINGS WERE SENT WITH PATIENT, INCLUDING PURSE AND OTHER PERSONAL ITEMS
--- NOTE | 2019-11-25 15:07 | NUR ---
MOT FOR [facility] CALL REPORT TO [phone] [facility] [address] [place] [address] ACCEPTING ADMIN: DARIAN TOVAR PRINTER TECHNICIAN ACCEPTING PHYSICIAN: ALEKSANDR DIAZ MOT IN PACKET AT DESK
--- NOTE | 2019-11-26 09:15 | NUR ---
Dictated DC summary: [id number]
--- NOTE | 2019-11-26 09:56 | Discharge Summary ---
ADMIT DIAGNOSES: 1. Comminuted right distal tibia/fibular fracture. 2. Hypertensive heart disease. 3. 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 4. Stage 3 chronic kidney disease. 5. Obesity, BMI of 34. 6. Recurrent urinary tract infections. DISCHARGE DIAGNOSES: 1. Status post open reduction and internal fixation of right distal tibia and distal fibular fracture with allograft. 2. Pseudomonas aeruginosa urinary tract infection. 3. Hypertensive heart disease. 4. 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 5. Stage 3 chronic kidney disease. 6. Obesity, BMI 34. 7. Recurrent urinary tract infections. HOSPITAL COURSE: This is a 79-year-old white woman, who suffered a mechanical fall and sustained a comminuted right distal tibia/fibular fracture. The patient was transported to [facility] Emergency Room where she was seen by orthopedic surgeon, Dr. Lili Melissa. The patient performed surgical repair of the comminuted right distal tibia/fibular fracture. The surgical repair specifically was open reduction and internal fixation of the right distal tibia and distal fibular fracture with allograft. The patient tolerated surgery quite well. Unfortunately during this hospitalization, the patient was found to have Pseudomonas aeruginosa urinary tract infection. The patient was started on intravenous meropenem, which she tolerated quite well. On admission, the patient's white blood cell count was 14,300 with 83% segmented neutrophils. On the day of discharge, the patient's white blood cell count was 8600 with 74% segmented neutrophils. The patient's hospitalization was unremarkable. She did receive physical therapy during this hospital stay. The decision was made to transfer the patient to an inpatient rehabilitation unit in [place], [place], namely [facility]. CONDITION ON DISCHARGE: Stable. DISCHARGE MEDICATIONS: 1. Meropenem 500 mg intravenous every 8 hours for a total of two more weeks. 2. Alprazolam 0.5 mg daily p.r.n. anxiety. 3. Baclofen 20 mg t.i.d. p.r.n. muscle spasm. 4. Dicyclomine 20 mg t.i.d. p.r.n. abdominal cramping. 5. Gabapentin 200 mg t.i.d. 6. Losartan 25 mg daily. 7. Hiprex 1 g b.i.d. 8. [place] Thyroid 60 mg daily. 9. Nystatin cream applied to affected area twice a day for 21 days. 10. Hydrocodone 7.5/325 one pill twice a day as needed for severe pain. FOLLOWUP INSTRUCTIONS: The patient was instructed to follow up with Dr. Lili Melissa, orthopedic surgeon, within 2 weeks. As previously stated, the patient was transferred to an inpatient rehabilitation unit, namely [facility] in [place], [place]. MD BRENTON Schilling/ALEJO /[id number]
== END 2019-11-25 14:14 | DRG 493 ==
LOC: ER 16:44 → ERHOLD 18:45 → MED/SURG 21:16
PROVIDERS: ADMIT Internal Medicine; ATTEND Internal Medicine
PROC: 0QSJ04Z Reposition Right Fibula with Internal Fixation Device, Open Approach (ICD-10-PCS; principal; 2019-11-22)
PROC: 0QSG04Z Reposition Right Tibia with Internal Fixation Device, Open Approach (ICD-10-PCS; 2019-11-22)
PROC: 0QUL0KZ Supplement Right Tarsal with Nonautologous Tissue Substitute, Open Approach (ICD-10-PCS; 2019-11-22)
PROC: 02HV33Z Insertion of Infusion Device into Superior Vena Cava, Percutaneous Approach (ICD-10-PCS; 2019-11-22)
DX: S82.251A Displaced comminuted fracture of shaft of right tibia, initial encounter for closed fracture (principal); N39.0 Urinary tract infection, site not specified; G82.22 Paraplegia, incomplete; N18.3 Chronic kidney disease, stage 3 (moderate); Z68.34 Body mass index [BMI] 34.0-34.9, adult; B96.5 Pseudomonas (aeruginosa) (mallei) (pseudomallei) as the cause of diseases classified elsewhere; I13.10 Hypertensive heart and chronic kidney disease without heart failure, with stage 1 through stage 4 chronic kidney disease, or unspecified chronic kidney disease; S82.831A Other fracture of upper and lower end of right fibula, initial encounter for closed fracture; W18.39XA Other fall on same level, initial encounter; E66.01 Morbid (severe) obesity due to excess calories; Z93.3 Colostomy status; M16.11 Unilateral primary osteoarthritis, right hip
CPT/HCPCS: 36415; 36556; 71045; 74470; 76937; 80048; 80053; 81001; 85025; 85610; 85730; 86850; 86900; 87086; 87186; 93005; 97139; 99251; 99285; C1713; C1751; J1100; J1170; J1644; J1650; J2001; J2185; J2405; J3010; J3370; J7050

== ENCOUNTER → 2021-04-26 | Outpatient (CLI) | payer MEDICARE ==
[~2021-04-26] MED LIST changes: -DEXAMETHASONE SOD PHOS INJ 4 MG/ML VIAL ONE; +ENEMA READY TO133 ML RC; -EPHEDRINE SULFATE INJ 50 MG/ML VIAL ONE; -LABETALOL HCL 5 MG/ML 20ML VIAL ONE; +LIDOCAINE HCL 1% LOCAL INJ 20 ML VIAL ONE; -LIDOCAINE HCL 2% LOCAL INJ 5 ML SDV VIAL INJ ONE; -ONDANSETRON HCL INJ 2MG/ML 2ML 2 MG/ML VIAL ONE; -PROPOFOL IV EMULSION 10 MG/ML 20 ML VIAL ONE; -SEVOFLURANE INHAL SOLN 250 ML PEN BTL ONE; +SODIUM CHLORIDE 0.9% 250ML 250 ML ONE
[2021-04-26 11:26] LABS: HEMOGLOBIN 14.3 g/dL (12.0-16.0)
[2021-04-26 11:56] LABS: INR 0.97; PROTHROMBIN TIME 13.1 seconds (11.9-14.5)
[2021-04-26 11:57] LABS: PARTIAL THROMBOPLASTIN TIME 29.1 seconds (23.8-35.5)
== END ==
LOC: DX 11:01
PROVIDERS: ATTEND Internal Medicine
DX: N39.0 Urinary tract infection, site not specified (principal)
CPT/HCPCS: 36415; 36558; 76937; 77001; 85014; 85049; 85610; 85730; J2001; J7050

== ENCOUNTER → 2021-06-11 | Outpatient (CLI) | payer MEDICARE ==
[~2021-06-11] MED LIST changes: -LIDOCAINE HCL 1% LOCAL INJ 20 ML VIAL ONE; -SODIUM CHLORIDE 0.9% 250ML 250 ML ONE
== END ==
LOC: DX 10:49
PROVIDERS: ATTEND Internal Medicine
DX: N39.0 Urinary tract infection, site not specified (principal)
CPT/HCPCS: 36589; 71045

== ENCOUNTER → 2022-04-05 | Outpatient (CLI) | payer MEDICARE | LOC: CT 13:25 | PROVIDERS: ATTEND Orthopaedic Surgery | DX: L03.114 Cellulitis of left upper limb (principal) ==

== ENCOUNTER 2024-10-23 17:27 | Emergency (ER) | payer MEDICARE ==
[~2024-10-23] VITALS: Ht 162.6 cm; Wt 92.1 kg
[~2024-10-23 17:27] MED LIST changes: +ULTRAM 50MG50 MG PO
[2024-10-23 17:49] VITALS: TEMP 98.2
[2024-10-23 20:01] LABS: BASOPHILS # (AUTO) 0.1 (0.0-0.1); BASOPHILS % 0.5 % (0.0-1.0); EOSINOPHILS # (AUTO) 0.2 (0.0-0.4); EOSINOPHILS % 1.5 % (0.0-6.0); HEMOGLOBIN 11.3 g/dL (12.0-16.0); LYMPHOCYTES % 9.3 % (18.0-39.1); MEAN CORPUSCULAR HEMOGLOBIN 30.5 pg (28-32); MEAN CORPUSCULAR HGB CONC 32.3 g/dL (31-35); MEAN CORPUSCULAR VOLUME 94.6 fL (81-99); MONOCYTES # (AUTO) 0.9 (0.2-0.8); MONOCYTES % 8.4 % (4.4-11.3); NEUTROPHILS # (AUTO) 8.7 (2.1-6.9); NEUTROPHILS % 80.1 % (38.7-80.0); PLATELET COUNT 328 x10e3/uL (140-360); RED CELL DISTRIBUTION WIDTH 12.7 % (11.7-14.4)
[2024-10-23 20:24] LABS: ALBUMIN 2.3 g/dL (3.5-5.0); ALBUMIN/GLOBULIN RATIO 0.5 (0.8-2.0); ANION GAP 14.5 mmol/L (8-16); BILIRUBIN,TOTAL 0.5 mg/dL (0.2-1.2); CALCIUM 10.1 mg/dL (8.4-10.2); CREATININE, SERUM 1.18 mg/dL (0.57-1.11); POTASSIUM 4.5 mmol/L (3.5-5.1); TOTAL PROTEIN 6.6 g/dL (6.5-8.1)
[2024-10-23] MEDS ORDERED: IOPAMIDOL 370 MG/ML 100 ML INFUS..BTL INJ ONE (20:34)
[2024-10-23] MEDS: SODIUM CHLORIDE 0.9% 1000ML 1,000 ML IV ONE (21:05)
[2024-10-24] MEDS ORDERED: PIPERACILLIN/TAZOBACTAM 4.5 GM in SODIUM CHLORIDE 0.9% 100 ML IV ONE
[2024-10-24] MEDS ORDERED: Vancomycin IV 1 GM VIAL ONE (00:16)
[2024-10-24] MEDS: CEFEPIME 2 GM in SODIUM CHLORIDE 0.9% 100 ML IV ONE (00:17)
[2024-10-24] MEDS: Vancomycin IV 2 GM in SODIUM CHLORIDE 0.9% 250ML 250 ML IV ONE (00:18)
[2024-10-24 01:45] VITALS: PULSE 80; RESP 16
[2024-10-24 02:36] VITALS: BP 122/87; PULSE 68; RESP 18; TEMP 98; O2SAT 98
== END 2024-10-24 02:38 | disposition other institution (70) ==
LOC: ER 18:14
DX: M86.8X8 Other osteomyelitis, other site (principal); I10 Essential (primary) hypertension; K21.9 Gastro-esophageal reflux disease without esophagitis; F41.9 Anxiety disorder, unspecified; Z93.3 Colostomy status
CPT/HCPCS: 36415; 72193; 80053; 85025; 87040; 99284; J0692; J3370; J7030; J7050 ×2; Q9967